=== PATIENT | male | born 1930 | race Caucasian/White ===

== ENCOUNTER 2019-01-06 11:51 | Observation (INO) | payer MEDICARE, OTHER ==
[~2019-01-06] VITALS: Ht 180.3 cm; Wt 96.1 kg
--- NOTE | 2019-01-06 12:09 | ERD ---
ER Documentation Chief Complaint Chief Complaint SENT BY MARGUERITE GREEN C/O RT SHOULDER PAIN. HPI The patient is a 88-year-old male, presenting to the ER because he had a mechanical fall this morning and complained of left shoulder pain. He denies headache, syncope, near syncope, neck pain, chest pain, dyspnea, abdominal pain, vomiting, dysuria, diarrhea. He does not smoke nor drink Past medical history: CAD, atrial fibrillation, hypertension, BPH, dyslipidemia Past surgical history: Pacemaker ROS All systems reviewed and are negative except as per history of present illness. Medications Home Meds Reported Medications Warfarin Sodium* (Coumadin*) 2.5 Mg Tablet, 2.5 MG PO DAILY, TAB START 12/24/18 01/06/19 Acetaminophen* (Acetaminophen*) 325 Mg Tablet, 650 MG PO Q6H PRN for MILD PAIN LEVEL 1-3, #30 TAB 01/06/19 Metolazone* (Metolazone*) 5 Mg Tablet, 5 MG PO DAILY, TAB 01/06/19 Calcium Carbonate/Vitamin D3 (OYSTERCAL-D 500 MG-400 UNIT TB) 1 Each Tablet, 1 EACH PO BID, TAB 01/06/19 Ascorbic Acid (Vitamin C) 500 Mg Tab, 500 MG PO DAILY, TAB 01/06/19 Simvastatin* (Zocor*) 10 Mg Tablet, 10 MG PO QHS, #30 TAB 01/06/19 Potassium Chloride* (Potassium Chloride*) 20 Meq Tablet.er, 20 MEQ PO DAILY, TAB.SA 01/06/19 Pantoprazole* (Pantoprazole*) 40 Mg Tablet.dr, 40 MG PO AC BREAKFAST, TAB 01/06/19 Vit A,C & E/Lutein/Minerals (Ocuvite) 1 Each Tablet, 1 TAB PO DAILY, TAB 01/06/19 Multivitamins* (Theragran*) 1 Tab Tab, 1 TAB PO DAILY, TAB 01/06/19 Mirtazapine* (Mirtazapine*) 15 Mg Tablet, 15 MG PO HS, TAB 01/06/19 Furosemide* (Furosemide*) 40 Mg Tablet, 40 MG PO DAILY, TAB 01/06/19 Finasteride* (Finasteride*) 5 Mg Tablet, 5 MG PO DAILY, TAB 01/06/19 Benazepril Hcl* (Benazepril Hcl*) 10 Mg Tablet, 10 MG PO DAILY, #30 TAB 01/06/19 Aspirin* (Aspirin* EC) 81 Mg Tablet.dr, 81 MG PO DAILY, TAB 01/06/19 Allergies Allergies: Coded Allergies: codeine (Unverified Allergy, Unknown, 01/06/19) Physical Exam Vitals Vital Signs Date Temp Pulse Resp B/P (MAP) Pulse Ox O2 O2 Flow FiO2 Time Delivery Rate 01/06/19 98.8 69 18 115/61 96 12:05 (79) Physical Exam Const: No acute distress. Head: Atraumatic. Eyes: Normal Conjunctiva. ENT: Normal External Ears, Nose and Mouth. Neck: Full range of motion. No meningismus. Resp: Clear to auscultation bilaterally. Cardio: Regular rate and rhythm. Abd: Soft, non distended, normal bowel sounds, non tender. Skin: No petechiae or rashes. Back: No midline or flank tenderness. Ext: Left shoulder with moderate tender with limited range of motion, no skin violation, palpable distal pulses Neur: Awake and alert. No focal deficit Psych: Normal Mood and Affect. Result Diagram: 01/06/19 1314 01/06/19 1314 Results 24 hrs Laboratory Tests Test 01/06/19 13:14 White Blood Count 8.8 10^3/ul Red Blood Count 4.58 10^6/ul Hemoglobin 14.1 g/dl Hematocrit 41.4 % Mean Corpuscular Volume 90.4 fl Mean Corpuscular Hemoglobin 30.8 pg Mean Corpuscular Hemoglobin Concent 34.1 g/dl Red Cell Distribution Width 13.1 % Platelet Count 198 10^3/UL Mean Platelet Volume 9.7 fl Immature Granulocytes % 0.500 % Neutrophils % 58.2 % Lymphocytes % 26.7 % Monocytes % 11.1 % Eosinophils % 3.3 % Basophils % 0.2 % Nucleated Red Blood Cells % 0.0 /100WBC Immature Granulocytes # 0.040 10^3/ul Neutrophils # 5.1 10^3/ul Lymphocytes # 2.4 10^3/ul Monocytes # 1.0 10^3/ul Eosinophils # 0.3 10^3/ul Basophils # 0.0 10^3/ul Nucleated Red Blood Cells # 0.0 10^3/ul Prothrombin Time 26.4 Sec Prothrombin Time Ratio 2.1 INR International Normalized Ratio 2.42 Activated Partial Thromboplast Time 32.0 Sec Sodium Level 133 mmol/L Potassium Level 4.0 mmol/L Chloride Level 92 mmol/L Carbon Dioxide Level 32 mmol/L Anion Gap 9 Blood Urea Nitrogen 19 mg/dl Creatinine 0.88 mg/dl Est Glomerular Filtrat Rate mL/min mL/min Glucose Level 93 mg/dl Calcium Level 9.5 mg/dl Magnesium Level 1.8 mg/dl Troponin I 0.025 ng/ml Current Medications Medications Dose Sig/Yan Start Time Status Last (Trade) Ordered Route PRN Stop Time Admin Dose Reason Admin Ondansetron 4 mg ONCE STAT 01/06/19 DC 01/06/19 HCl (Zofran ODT 14:32 01/06/19 14:58 Odt) 14:35 Procedures/[place] [id number] Radiology Main Line: [phone] DIAGNOSTIC IMAGING REPORT Patient: GISSELLE WINKLER : 1930 Age: 88 Sex: M MR #: [id number] DOS: 01/06/19 1247 Ordering MD: JUAN C AYALA MD Location: E/R Room/Bed: PROCEDURE: XR Chest. CLINICAL INDICATION: Chest pain TECHNIQUE: Single frontal view of the chest was obtained COMPARISON: None FINDINGS: The heart is enlarged. The thoracic aorta is calcified. There is a left-sided pacemaker in place. The patient is status post sternotomy. There is a left atrial appendage exclusion device in place. There is mild elevation of the right diaphragm. There are mild bibasilar atelectatic changes. There is no pleural effusion or pneumothorax. RPTAT: AA IMPRESSION: Mild cardiomegaly. Calcified aorta consistent with atherosclerotic disease. Mild bibasilar atelectatic changes, left greater than right. .Shivam Mcgill MD, MD Date Time Electronically viewed and signed by .Shivam Mcgill MD, MD on 01/06/2019 13:18 .S/ CC: JUAN C AYALA MD [id number] [facility] [id number] [place] [address] Radiology Main Line: [phone] DIAGNOSTIC IMAGING REPORT Patient: GISSELLE WINKLER : 1930 Age: 88 Sex: M MR #: [id number] DOS: 01/06/19 1226 Ordering MD: JUAN C AYALA MD Location: E/R Room/Bed: PROCEDURE: XR left shoulder. CLINICAL INDICATION: Pain TECHNIQUE: AP, Internal and external rotation views of the left shoulder were performed. COMPARISON: None. FINDINGS: There are moderate degenerative changes involving the acromioclavicular joint with mild joint space narrowing. There is normal osseous mineralization and alignment. No fracture or osseous lesion is identified. The soft tissues are unremarkable. There is calcification in the subdeltoid bursa. RPTAT: AA IMPRESSION: Moderate degenerative changes of the acromioclavicular joint. Mild calcific tendonitis. .Shivam Mcgill MD, MD Date Time Electronically viewed and signed by .Shivam Mcgill MD, MD on 01/06/2019 13:16 .S/ CC: JUAN C AYALA MD [id number] EKG: Read by emergency physician Rate/Rhythm: wide qrs rhythm at 71 beats/min QRS, ST, T-waves: No ST elevation, no T inversion, pvc, lad, lvh Impression: abnormal EKG MEDICAL MAKING DECISION: The patient is a 88-year-old male, presenting with acute left shoulder pain, abnormal EKG. treated with Portal 5 mg p.o. for pain and zofran odt for nausea with good response. The differential diagnoses considered include but are not limited to fracture, contusion, sprain, internal derangement, arrhythmia, syncope Departure Diagnosis: Primary Impression: Fall with no significant injury Additional Impression: Abnormal ECG Condition: Stable Comments I discussed the findings with the patient. I discussed the patient with Dr Marlow at 2:30p. who was made aware of the lab, the treatment, the patient condition. The patient is admitted to [facility] Disclaimer: Inadvertent spelling and grammatical errors are likely due to EHR/dictation software use and do not reflect on the overall quality of patient care. Also, please note that the electronic time recorded on this note does not necessarily reflect the actual time of the patient encounter. JUAN C AYALA MD Jan 06, 2019 12:09
[2019-01-06] MEDS ORDERED: ASPI-817 PO (14:24)
[2019-01-06] MEDS ORDERED: FURO40TA4 PO (14:25)
[2019-01-06] MEDS ORDERED: BENA10TA4 PO (14:25)
[2019-01-06] MEDS ORDERED: FINA5TAB4 PO (14:25)
[2019-01-06] MEDS ORDERED: MIRT15TA5 PO (14:26)
[2019-01-06] MEDS ORDERED: MULTI PO (14:26)
[2019-01-06] MEDS ORDERED: VIT1TABL32 PO (14:27)
[2019-01-06] MEDS ORDERED: POTA20TA96 PO (14:27)
[2019-01-06] MEDS ORDERED: PANT40TA4 PO (14:27)
[2019-01-06] MEDS ORDERED: SIMV10TA PO (14:28)
[2019-01-06] MEDS ORDERED: ASC500 PO (14:28)
[2019-01-06] MEDS ORDERED: CALC-634 PO (14:29)
[2019-01-06] MEDS ORDERED: ONDANSETRON (ODT) 4 MG TAB ODT STA (14:32)
[2019-01-06] MEDS ORDERED: METO5TAB65 PO (14:32)
[2019-01-06] MEDS ORDERED: ACET325T45 PO (14:33)
[2019-01-06] MEDS ORDERED: WARF2.5T PO (14:34)
[2019-01-06] MEDS ORDERED: HYDROCODONE/APAP (5/325) TAB PO ONE (15:00)
[2019-01-06 17:16] VITALS: Ht 180.3 cm; Wt 96.1 kg
[2019-01-06] MEDS ORDERED: DOCUSATE SODIUM 100 MG CAP PO PRN (18:30)
[2019-01-06] MEDS ORDERED: ACETAMINOPHEN 325 MG TAB PO PRN (18:30)
[2019-01-06] MEDS ORDERED: NACL 0.9% 3 ML SYG IV SCH (18:30)
[2019-01-06] MEDS ORDERED: ONDANSETRON 4 MG INJ IV PRN (18:30)
--- NOTE | 2019-01-06 19:13 | HP ---
DATE OF ADMISSION: 01/06/2019 REASON FOR ADMISSION: Status post fall with left shoulder pain, abnormal EKG. HISTORY OF PRESENT ILLNESS: The patient is an 88-year-old male with extensive cardiac hist ory including congestive heart failure, hypertension, atrial fibrillation on Coumadin, valve surgery, CABG, 2-vessel disease, abdominal aortic aneurysm repair, who resides at the [facility]. Unfortunately, the patient had an episode of fall and he fell on the left shou lder. He denies any head trauma. He was sent to the ER and chest x-ray was done which shows mild ca rdiomegaly, calcified aorta consistent with atherosclerotic disease, mild ____ atelectatic changes, l eft greater than right. Shoulder x-ray showed moderate degenerative change of the acromioclavicular joint, mild calcific tendinitis. The patient was admitted as his EKG showed widening QRS. The patie nt otherwise denies any chest pain or shortness of breath. Denies any syncopal episode. Denies any head trauma or loss of consciousness. The patient overall has no specific complaints besides left sh oulder pain with decreased range of motion of the arm. The patient needs further care. PAST MEDICAL HISTORY: Includes CHF, hypertension, atrial fibrillation, pacemaker placement, BPH, his tory of abdominal aortic aneurysm status post stenting, coronary artery disease, history of carotid s tenosis status post carotid endarterectomy. ALLERGIES: CODEINE. PAST SURGICAL HISTORY: Includes pacemaker placement, CABG, 2-vessel disease, valvular heart surgery, abdominal aortic aneurysm, carotid endarterectomy. SOCIAL HISTORY: Socially uses tobacco, IV drug abuse. Denies alcohol. Used to drink briefly for 5 years, more than social. The patient is . He has 1 child. MEDICATIONS AT HOME: Include the followin. Aspirin 81 mg daily. 2. Benazepril 10 mg daily. 3. Finasteride 5 mg daily. 4. Lasix 40 mg daily. 5. Mirtazapine 15 mg at bedtime. 6. Multivitamin 1 tablet daily. 7. Ocuvite Lutein 1 tablet daily. 8. Protonix 40 mg daily. 9. ____ daily. 10. Simvastatin 10 mg at bedtime. 11. Vitamin C 500 mg daily. 12. ____ 5 mg b.i.d. 13. Metolazone 5 mg Zaroxolyn 1 tab daily. 14. Potassium chloride 8 mEq 3 times a day. 15. Warfarin 2 mg daily. 16. Tylenol p.r.n. The patient is ambulatory. The patient may have also very mild vascular dementia. FAMILY HISTORY: Noncontributory. PHYSICAL EXAMINATION: VITAL SIGNS: Temperature 98.8, pulse 76, respiration 19, blood pressure 109/65, saturation 95% on ro om air. GENERAL: No acute distress. HEENT: Normocephalic, atraumatic, slightly pale. CARDIOVASCULAR: S1 and S2. Pacemaker is in place. Mid chest scar. LUNGS: Clear. ABDOMEN: Soft, nontender. EXTREMITIES: No clubbing, cyanosis or edema. The patient is with decreased range of motion of the l eft shoulder due to pain. LABORATORY DATA: White count is 8.8, hemoglobin 14.1, hematocrit 41, platelet count is 198, neutroph ils 58%, lymphs 27%. Chemistry: Sodium 133, potassium 4.0, chloride 92, bicarbonate 32, BUN is 19, creatinine 0.88, glucose of 93. Troponin negative at 0.025. Magnesium is 1.8. INR is 2.42 which is therapeutic. DIAGNOSTIC DATA: X-rays: As above. EKG shows left axis deviation, left ventricular hypertrophy wit h QRS widening and repolarization abnormality, possible lateral infarct, age undetermined, 71 beats p er minute. ASSESSMENT AND PLAN: This is an 88-year-old male with history of extensive cardiac history , mild vascular dementia, history of atrial fibrillation, anticoagulated, benign prostatic hypertroph y, osteoarthritis, who presented with unfortunate fall complaining of left shoulder pain. 1. Left shoulder pain. Conservative management for now. Continue physical therapy, pain control. Avoid NSAID in the setting of blood thinners. 2. Arrhythmia. Consult cardiology to possibly interrogate the pacemaker. Cardiology will be consul nela. Serial troponins will be obtained. Monitor patient on telemetry unit for any arrhythmias or an y abnormalities. 3. Benign prostatic hypertrophy. Continue medications. 4. The patient will be placed on Protonix for gastrointestinal prophylaxis. 5. Disposition soon back to facility. 6. History of congestive heart failure. Clinically, no evidence of congestive heart failure exacerb ation. Monitor electrolytes. We will follow closely. May consider discontinuing Coumadin in settin g of fall and just keep him on aspirin. We will follow. Case was discussed with daughter over the phone in detail regarding plan of care. H er name is Daphney, phone number [phone]. Dictated By: RICHARDSON FATIMA/DEVEN Conf#: [id number] DID#: [id number] CC: SIMEON RICO MD;*EndCC*
[2019-01-06 20:00] VITALS: BP 150/80; PULSE 72; RESP 19
[2019-01-06] MEDS ORDERED: MIRTAZAPINE 15 MG TAB PO SCH (21:00)
[2019-01-06 23:52] VITALS: BP 124/59; PULSE 69; RESP 20
[2019-01-07] VITALS: PULSE 70
[2019-01-07 04:00] VITALS: BP 120/80; PULSE 70; PULSE 71; RESP 19
[2019-01-07] MEDS ORDERED: PANTOPRAZOLE (EC) 40 MG TAB PO SCH (06:00)
[2019-01-07 07:10] VITALS: BP 122/66; PULSE 66; RESP 18
[2019-01-07 08:15] VITALS: PULSE 73
--- NOTE | 2019-01-07 08:40 | CONS ---
Assessment/Plan Assessment/Plan Hospital Course (Demo Recall) 1. Abnormal EKG with wide complex rhythm consistent with patient pacemaker 2. Coronary artery disease with history of coronary bypass graft: Currently no angina 3. History of valvular heart disease probably aortic valve replacement 4. History of congestive heart failure: Chronic and stable. Echocardiogram is pending to evaluate for LV function 5. Hypertension under control 6. Peripheral vascular disease status post AAA repair as well as carotid endarterectomy 7. Dyslipidemia 8. afib on coumadin 9/ s/p fall REC CONT WITH coumadin as long as fall precautions is being done. echo is pending. cont MYRTLE-I Will add toprol xl consider stopping asa since pt is on coumadin already resume statin upon discharge. according to daughter, pacemaker was interrogated last week and had normal function and battery thank you Consultation Date/Type/Reason Admit Date/Time Jan 06, 2019 at 14:32 Date of Consultation: Jan 07, 2019 Type of Consult Cardiology Reason for Consultation abnormal ECG Date/Time of Note DATE: 01/07/19 TIME: 08:30 Hx of Present Illness Interventional cardiology consultation note Chief complaint: S/P FALL with shoulder pain Reason for consult: Abnormal EKG, History of present illness: Thank you for this referral. History was obtained from the patient with most from discussion with his daughter and extensive review of the old chart. This is a very pleasant 88-year-old male with extensive cardiac history including congestive heart failure, hypertension, atrial fibrillation on Coumadin, valve surgery, CABG, 2-vessel disease, abdominal aortic aneurysm repai r, who resides at the assisted living facility at [facility]. Unfortunately, the patient had an episode of fall and he fell on the left shoulder yesterday. Patient states that he slipped and he fell he did not pass out.. He denies any head trauma. He was sent to the ER a The patient was adm itted as his EKG showed widening QRS. EKG was personally reviewed which showed patient is being paced in fact. PAST MEDICAL HISTORY: Includes CHF, hypertension, atrial fibrillation, pacemaker placement, BPH, history of abdominal aortic aneurysm status post stenting, coronary artery disease, history of carotid stenosis status post carotid endarterectomy. ALLERGIES: CODEINE. PAST SURGICAL HISTORY: Includes pacemaker placement about 4 years ago using a [employer] device, CABG, 2-vessel disease, valvular heart surgery probably aortic valve replacement using a bioprosthetic valve more than 10 years ago , abdominal aortic aneurysm, carotid endarterectomy. SOCIAL HISTORY: Socially uses tobacco, IV drug abuse. Denies alcohol. Used to drink briefly for 5 years, more than social. The patient is . He has 1 child. MEDICATIONS AT HOME: Include the followin. Aspirin 81 mg daily. 2. Benazepril 10 mg daily. 3. Finasteride 5 mg daily. 4. Lasix 40 mg daily. 5. Mirtazapine 15 mg at bedtime. 6. Multivitamin 1 tablet daily. 7. Ocuvite Lutein 1 tablet daily. 8. Protonix 40 mg daily.. 10. Simvastatin 10 mg at bedtime. 11. Vitamin C 500 mg daily. 12. ____ 5 mg b.i.d. 13. Metolazone 5 mg Zaroxolyn 1 tab daily. 14. Potassium chloride 8 mEq 3 times a day. 15. Warfarin 2 mg daily. 16. Tylenol p.r.n. Allergies: Codeine Family history: Patient father at a young age of myocardial infarction Review of system: Patient denies all others except for above-mentioned Past Medical History Home Meds Reported Medications Warfarin Sodium* (Coumadin*) 2.5 Mg Tablet, 2.5 MG PO DAILY, TAB START 12/24/18 01/06/19 Acetaminophen* (Acetaminophen*) 325 Mg Tablet, 650 MG PO Q6H PRN for MILD PAIN LEVEL 1-3, #30 TAB 01/06/19 Metolazone* (Metolazone*) 5 Mg Tablet, 5 MG PO DAILY, TAB 01/06/19 Calcium Carbonate/Vitamin D3 (OYSTERCAL-D 500 MG-400 UNIT TB) 1 Each Tablet, 1 EACH PO BID, TAB 01/06/19 Ascorbic Acid (Vitamin C) 500 Mg Tab, 500 MG PO DAILY, TAB 01/06/19 Simvastatin* (Zocor*) 10 Mg Tablet, 10 MG PO QHS, #30 TAB 01/06/19 Potassium Chloride* (Potassium Chloride*) 20 Meq Tablet.er, 20 MEQ PO DAILY, TAB.SA 01/06/19 Pantoprazole* (Pantoprazole*) 40 Mg Tablet.dr, 40 MG PO AC BREAKFAST, TAB 01/06/19 Vit A,C & E/Lutein/Minerals (Ocuvite) 1 Each Tablet, 1 TAB PO DAILY, TAB 01/06/19 Multivitamins* (Theragran*) 1 Tab Tab, 1 TAB PO DAILY, TAB 01/06/19 Mirtazapine* (Mirtazapine*) 15 Mg Tablet, 15 MG PO HS, TAB 01/06/19 Furosemide* (Furosemide*) 40 Mg Tablet, 40 MG PO DAILY, TAB 01/06/19 Finasteride* (Finasteride*) 5 Mg Tablet, 5 MG PO DAILY, TAB 01/06/19 Benazepril Hcl* (Benazepril Hcl*) 10 Mg Tablet, 10 MG PO DAILY, #30 TAB 01/06/19 Aspirin* (Aspirin* EC) 81 Mg Tablet.dr, 81 MG PO DAILY, TAB 01/06/19 Medications Current Medications IV Flush (NS 3 ml) 3 ml PER PROTOCOL IV ; Start 01/06/19 at 18:30 Ondansetron HCl (Zofran Inj) 4 mg Q6H PRN IV NAUSEA/VOMITING; Start 01/06/19 at 18:30 Acetaminophen (Tylenol Tab) 650 mg Q6H PRN PO .PAIN 1-3 OR TEMP Last administered on 01/06/19at 22:29; Admin Dose 650 MG; Start 01/06/19 at 18:30 Docusate Sodium (Colace) 100 mg Q12H PRN PO .CONSTIPATION; Start 01/06/19 at 18:30 Pantoprazole (Protonix Tab) 40 mg DAILY@06 PO Last administered on 01/07/19at 05 :04; Admin Dose 40 MG; Start 01/07/19 at 06:00 Ascorbic Acid (Vitamin C) 500 mg DAILY PO ; Start 01/07/19 at 09:00 Aspirin (Halfprin) 81 mg DAILY PO ; Start 01/07/19 at 09:00 Benazepril HCl (Lotensin) 10 mg DAILY PO ; Start 01/07/19 at 09:00 Finasteride (Proscar) 5 mg DAILY PO ; Start 01/07/19 at 09:00 Furosemide (Lasix) 40 mg DAILY PO ; Start 01/07/19 at 09:00 Metolazone (Zaroxolyn) 5 mg DAILY PO ; Start 01/07/19 at 09:00 Mirtazapine (Remeron) 15 mg HS PO Last administered on 01/06/19at 20:15; Admin Dose 15 MG; Start 01/06/19 at 21:00 Multivitamins Therapeutic (Theragran) 1 tab DAILY PO ; Start 01/07/19 at 09:00 Potassium Chloride (Klor-Con 20) 20 meq DAILY PO ; Start 01/07/19 at 09:00 Beta Carotene (Ocuvite) 1 tab DAILY PO ; Start 01/07/19 at 09:00 Warfarin Sodium (Coumadin) 2.5 mg DAILY@1700 PO ; Start 01/07/19 at 17:00 Allergies: Coded Allergies: codeine (Unverified Allergy, Unknown, 01/06/19) Social History Smoking Status: Never smoker Exam/Review of Systems Vital Signs Vitals Vital Signs Date Temp Pulse Resp B/P (MAP) Pulse Ox O2 O2 Flow FiO2 Time Delivery Rate 01/07/19 73 08:15 01/07/19 97.5 18 122/66 97 07:10 (84) 01/07/19 2.0 05:37 01/07/19 Room Air 04:00 Intake and Output 01/06/19 01/06/19 01/07/19 1414:59 22:59 06:59 IntakeIntake Total 120 ml OutputOutput Total 450 ml BalanceBalance -330 ml Exam Exam General: no acute distress HEENT: NC/AT. pupils are equal. round. NECK: NO JVD. no stridor. Chest: Status post sternotomy status post pacemaker on the left side CV: RRR. systolic murmur; no gallop or rubs. PULM: no wheezing or rhonchi. GI: SOFT, NT, ND, no rebound or guarding Extremity: trace B/L LE edema. no clubbing. neuro: awake and alert, OX2. Psych: calm and pleasant rectal: deferred : normal EKG was personally reviewed shows ventricular paced rhythm with occasional PVC . Chest x-ray was personally reviewed which shows: Mild cardiomegaly. Calcified aorta consistent with atherosclerotic disease. Mild bibasilar atelectatic changes, left greater than right. Labs Result Diagram: 01/07/19 0611 01/07/19 0611 Results 24hrs Laboratory Tests Test 01/06/19 13:14 01/07/19 06:11 White Blood Count 8.8 8.8 Red Blood Count 4.58 L 4.49 L Hemoglobin 14.1 13.8 L Hematocrit 41.4 L 40.6 L Mean Corpuscular Volume 90.4 90.4 Mean Corpuscular Hemoglobin 30.8 30.7 Mean Corpuscular Hemoglobin Concent 34.1 34.0 Red Cell Distribution Width 13.1 13.0 Platelet Count 198 193 Mean Platelet Volume 9.7 10.0 Immature Granulocytes % 0.500 H 0.300 Neutrophils % 58.2 51.5 Lymphocytes % 26.7 34.5 Monocytes % 11.1 H 10.0 Eosinophils % 3.3 3.4 Basophils % 0.2 0.3 Nucleated Red Blood Cells % 0.0 0.0 Immature Granulocytes # 0.040 H 0.030 Neutrophils # 5.1 4.5 Lymphocytes # 2.4 3.0 H Monocytes # 1.0 H 0.9 Eosinophils # 0.3 0.3 Basophils # 0.0 0.0 Nucleated Red Blood Cells # 0.0 0.0 Prothrombin Time 26.4 H Prothrombin Time Ratio 2.1 INR International Normalized Ratio 2.42 Activated Partial Thromboplast Time 32.0 Sodium Level 133 L 133 L Potassium Level 4.0 3.7 Chloride Level 92 L 93 L Carbon Dioxide Level 32 H 33 H Anion Gap 9 7 Blood Urea Nitrogen 19 18 Creatinine 0.88 0.87 Est Glomerular Filtrat Rate mL/min Glucose Level 93 85 Calcium Level 9.5 9.2 Magnesium Level 1.8 Troponin I 0.025 0.031 Hemoglobin A1c 5.6 Total Bilirubin 1.2 Direct Bilirubin 0.00 Indirect Bilirubin 1.2 H Aspartate Amino Transf (AST/SGOT) 19 Alanine Aminotransferase (ALT/SGPT) 17 Alkaline Phosphatase 45 B-Type Natriuretic Peptide 890 H Total Protein 6.3 Albumin 3.8 Globulin 2.50 Albumin/Globulin Ratio 1.52 Triglycerides Level 78 Cholesterol Level 139 LDL Cholesterol, Calculated 72 HDL Cholesterol 51 Cholesterol/HDL Ratio 2.7 Thyroid Stimulating Hormone (TSH) Pending Medications Medications Current Medications IV Flush (NS 3 ml) 3 ml PER PROTOCOL IV ; Start 01/06/19 at 18:30 Ondansetron HCl (Zofran Inj) 4 mg Q6H PRN IV NAUSEA/VOMITING; Start 01/06/19 at 18:30 Acetaminophen (Tylenol Tab) 650 mg Q6H PRN PO .PAIN 1-3 OR TEMP Last administered on 01/06/19at 22:29; Admin Dose 650 MG; Start 01/06/19 at 18:30 Docusate Sodium (Colace) 100 mg Q12H PRN PO .CONSTIPATION; Start 01/06/19 at 18:30 Pantoprazole (Protonix Tab) 40 mg DAILY@06 PO Last administered on 01/07/19at 05:04; Admin Dose 40 MG; Start 01/07/19 at 06:00 Ascorbic Acid (Vitamin C) 500 mg DAILY PO ; Start 01/07/19 at 09:00 Aspirin (Halfprin) 81 mg DAILY PO ; Start 01/07/19 at 09:00 Benazepril HCl (Lotensin) 10 mg DAILY PO ; Start 01/07/19 at 09:00 Finasteride (Proscar) 5 mg DAILY PO ; Start 01/07/19 at 09:00 Furosemide (Lasix) 40 mg DAILY PO ; Start 01/07/19 at 09:00 Metolazone (Zaroxolyn) 5 mg DAILY PO ; Start 01/07/19 at 09:00 Mirtazapine (Remeron) 15 mg HS PO Last administered on 01/06/19at 20:15; Admin Dose 15 MG; Start 01/06/19 at 21:00 Multivitamins Therapeutic (Theragran) 1 tab DAILY PO ; Start 01/07/19 at 09:00 Potassium Chloride (Klor-Con 20) 20 meq DAILY PO ; Start 01/07/19 at 09:00 Beta Carotene (Ocuvite) 1 tab DAILY PO ; Start 01/07/19 at 09:00 Warfarin Sodium (Coumadin) 2.5 mg DAILY@1700 PO ; Start 01/07/19 at 17:00 SIMEON RICO MD Jan 07, 2019 08:40
[2019-01-07] MEDS ORDERED: ASCORBIC ACID 500 MG TAB PO SCH (09:00)
[2019-01-07] MEDS ORDERED: ASPIRIN (EC) 81 MG TAB PO SCH (09:00)
[2019-01-07] MEDS ORDERED: BETA CAROTENE/VIT C/E/MIN TAB PO SCH (09:00)
[2019-01-07] MEDS ORDERED: FINASTERIDE 5 MG TAB PO SCH (09:00)
[2019-01-07] MEDS ORDERED: METOLAZONE 5 MG TAB PO SCH (09:00)
[2019-01-07] MEDS ORDERED: POTASSIUM CHLORIDE (SR) 20 MEQ TAB PO SCH (09:00)
[2019-01-07] MEDS ORDERED: BENAZEPRIL 10 MG TAB PO SCH (09:00)
[2019-01-07] MEDS ORDERED: FUROSEMIDE 40 MG TAB PO SCH (09:00)
[2019-01-07] MEDS ORDERED: MULTIVITAMINS THERAPEUTIC TAB PO SCH (09:00)
--- NOTE | 2019-01-07 10:40 | RADRPT ---
Echocardiogram Report Patient Name: GISSELLE WINKLERPatient ID: [id number] : 1930 (88y 5m)Study Date: 01/07/2019 8:33:36 AM Gender: MAccession #: [id number] Tech: Albert Gardner [facility] Location: [address] Ref.Physician: RICHARDSON PETERSON Height(Cm): BSA: Weight(Kg): Quality: AdequateAccount #: Procedures: Echocardiographic Report: Transthoracic echocardiogram with complete 2D, M-Mode, and doppler examination. Indications: Congestive Heart Failure. Measurements: 2D/M Mode Doppler Measurement Value Normal Range Measurement Value Normal Range LVIDd 2D 2.1 [ 4.2 - 5.8 ] cm ELY Vmax 1.0 [ 2.0 - 4.0 ] cm2 LVIDs 2D 2.7 [ 2.5 - 4.0 ] cm ELY VTI 1.2 [ 2.0 - 4.0 ] cm2 IVSd 2D 2.1 [ 0.6 - 1.0 ] cm AV Mean Patrick 1.6 [ 70.0 - 90.0 ] cm/sec IVS/LVPW 2D 1.3 ratio AV Mean PG 12.0 [ 2.0 - 4.0 ] mmHg AoR Diam 2D 3.3 [ 2.6 - 3.4 ] cm AV Peak Patrick 2.5 [ 100.0 - 170.0 ] cm/sec LA/Ao 2D 2 ratio AV Peak PG 25.0 [ 2.0 - 9.0 ] mmHg EF 2D 66.4 [ 52.0 - 72.0 ] percent AV VTI 49.7 cm LA Dimen 2D 5.4 [ 3.0 - 4.0 ] cm LVOT Mean Patrick 0.5 [ 60.0 - 80.0 ] cm/sec LVOT Diam 2.1 [ 2.3 - 2.9 ] cm LVOT Mean PG 1.0 [ 1.0 - 3.0 ] mmHg LVOT Area 3.5 cm2 LVOT Peak Patrick 0.7 [ 70.0 - 110.0 ] cm/sec LVOT Peak PG 2.0 [ 2.0 - 6.0 ] mmHg LVOT VTI 17.1 [ 20.0 - 30.0 ] cm MV E Peak Patrick 1.1 [ 60.0 - 130.0 ] cm/sec MV Decel Time 194 [ 104 - 258 ] msec Lat E` Patrick 0.0 [ 10.0 - 15.0 ] cm/sec TR Peak Patrick 2.7 [ 100.0 - 280.0 ] cm/sec TR Peak PG 29.0 mmHg RVSP 39.0 [ 10.0 - 36.0 ] mmHg Findings: Left Ventricle: Normal left ventricular systolic function. Normal left ventricular cavity size. Severe asymmetric septal hypertrophy. Paradoxical septal motion consistent with RV pacemaker. Ejection fraction is visually estimated at 50 %. Tissue Doppler/Mitral Doppler indices are consistent with impaired relaxation (Stage I diastolic dysfunction). Right Ventricle: Normal right ventricular systolic function. Mild enlargement of right ventricle. Pacemaker right heart. Left Atrium: There is severe enlargement of left atrium. Right Atrium: There is mild enlargement of right atrium. Mitral Valve: Mild mitral leaflet calcification. Mild mitral annular calcification. Trace mitral regurgitation. Aortic Valve: Aortic Valve Bio Prosthesis. Moderate aortic stenosis. Aortic valve Max velocity 2.48 m/sec. Max PG 25.00 mmHg. Mean PG 12.00 mmHg. Aortic cusps appear moderately calcified. Tricuspid Valve: Normal appearance of the tricuspid valve. Estimated peak PA systolic pressure 39 mmHg. There is mild tricuspid regurgitation. Pericardium: Normal pericardium with no significant pericardial effusion. Aorta: Normal aortic root. IVC: Normal size and normal respiratory collapse consistent with normal right atrial pressure. Conclusions: There is mild enlargement of right atrium. There is severe enlargement of left atrium. Normal left ventricular systolic function. Normal left ventricular cavity size. Severe asymmetric septal hypertrophy. Paradoxical septal motion consistent with RV pacemaker. Ejection fraction is visually estimated at 50 %. Tissue Doppler/Mitral Doppler indices are consistent with impaired relaxation (Stage I diastolic dysfunction). Mild mitral leaflet calcification. Mild mitral annular calcification. Trace mitral regurgitation. Normal appearance of the tricuspid valve. Estimated peak PA systolic pressure 39 mmHg. There is mild tricuspid regurgitation. Aortic Valve Bio Prosthesis. Moderate aortic stenosis. Aortic valve Max velocity 2.48 m/sec. Max PG 25.00 mmHg. Mean PG 12.00 mmHg. Aortic cusps appear moderately calcified. Normal size and normal respiratory collapse consistent with normal right atrial pressure. Electronically Signed By: Sky Parks 2019-01-07 10:39:27 PDT
[2019-01-07 11:23] VITALS: BP 118/59; PULSE 63; RESP 19
[2019-01-07 13:50] VITALS: PULSE 73
--- NOTE | 2019-01-07 14:11 | PDOCDIS ---
Discharge Instructions CONDITION [id number] Patient Condition: [id number] Stable ACTIVITY: [id number] Activity Restrictions: [id number] Slowly Increase Activity FOLLOW UP/APPOINTMENTS Follow-up Plan dc with home health/physical therapy Left shoulder trauma RICHARDSON PETERSON MD Jan 07, 2019 14:11
[2019-01-07] MEDS ORDERED: WARFARIN 2.5 MG TAB PO SCH (17:00)
--- NOTE | 2019-01-07 19:15 | PN ---
DATE: 01/07/2019 REASON FOR ADMISSION: Status post fall, left shoulder pain. HISTORY OF PRESENT ILLNESS: The patient is an 88-year-old male with history of extensive c ardiac history including CHF, hypertension, atrial fibrillation, valve surgery, CABG, 2-vessel diseas e, abdominal aortic aneurysm repair, valve surgery on Coumadin. The patient unfortunately sustained a fall as he tripped. Unfortunately he complained of left shoulder pain and he was transferred to [facility] Emergency Department. Upon presentation, he underwent a shoulder x-ray which showe d moderate degenerative changes of the acromioclavicular joint, mild calcific tendonitis. The patien t's chest x-ray showed mild cardiomegaly, calcified aorta consistent with atherosclerotic disease, mi ld basilar atelectatic changes, left greater than right. The patient was admitted due to a wide comp marcela rhythm. Upon admission, I consulted Dr. Parks, who stated that the rhythm is consistent with th e patient's pacemaker continue with Coumadin, but hold aspirin. The patient can be discharged. Topr ol-XL actually may be added to the medication, but currently actually vitals are stable, temperature 96.6, pulse 73, respiration 19, blood pressure 118/59, saturation 96%. DISCHARGE MEDICATIONS: The patient can be discharged with the following medications: 1. Tylenol p.r.n. 2. Vitamin C 500 mg daily. 3. Benazepril 10 mg daily. 4. Calcium carbonate with D 1 tab b.i.d. 5. Finasteride 5 mg daily. 6. Lasix 40 daily. 7. Metolazone 5 mg daily. 8. Mirtazapine 15 mg at bedtime. 9. Multivitamin 1 tab daily. 10. Protonix 40 mg daily. 11. K-Tab 20 mEq daily. 12. Simvastatin 10 mg at bedtime. 13. Ocuvite daily. 14. Warfarin 2.5 mg daily. I discontinued this patient's aspirin. Echocardiogram revealed the following: EF of 50, stage I diastolic dysfunction, moderate aortic sten osis. DISCHARGE DIAGNOSES: 1. Status post fall with no head trauma. 2. Left shoulder pain. No fractures. 3. History of atrial fibrillation. 4. Pacemaker. 5. Congestive heart failure. 6. Mild vascular dementia. 7. Hypertension. 8. Dyslipidemia. 9. Benign prostatic hypertrophy. I left a message with the daughter today and talked to her yesterday. Her name is Daphney, . The patient is discharged with home health. I explained to the patient that he really needs to avoid falling. If he does, we may have to just put him on aspirin instead of the Coumadin, but overa ll plan of care discussed. Patient to discharge home. Follow up with cardiology. Any change in con dition to call 911 or go to nearest emergency department. Again, patient will see physical therapy. Diet: 2 g sodium. Activity: As tolerated. The patient will be discharged today with transportati on. Dictated By: RICHARDSON FATIMA/DEVEN Conf#: [id number] DID#: [id number]
== END 2019-01-07 17:00 ==
LOC: E/R 11:51 → TEL 14:32
PROVIDERS: ADMIT Internal Medicine; ATTEND Internal Medicine
DX: M25.512 Pain in left shoulder (principal); I49.9 Cardiac arrhythmia, unspecified; N40.0 Benign prostatic hyperplasia without lower urinary tract symptoms; I50.9 Heart failure, unspecified; I48.91 Unspecified atrial fibrillation; I71.4 Abdominal aortic aneurysm, without rupture; Z79.01 Long term (current) use of anticoagulants; Z79.82 Long term (current) use of aspirin; Z95.0 Presence of cardiac pacemaker; Z95.1 Presence of aortocoronary bypass graft; F17.210 Nicotine dependence, cigarettes, uncomplicated; F01.50 Vascular dementia, unspecified severity, without behavioral disturbance, psychotic disturbance, mood disturbance, and anxiety; Z91.81 History of falling
CPT/HCPCS: 36415; 71045; 73030; 80048; 80053; 80061; 83036; 83735; 83880; 84443; 84484; 85025; 85610; 85730; 93005; 93306; 93880; 97162; 99285; G0378

== ENCOUNTER 2019-03-26 13:47 | Inpatient (IN) | payer MEDICARE, OTHER ==
[~2019-03-26] VITALS: Ht 175.3 cm; Wt 101.6 kg
[~2019-03-26 13:47] MED LIST: ACET325T45 PO; ASC500 PO; BENA10TA4 PO; CALC-634 PO; FINA5TAB4 PO; FURO40TA4 PO; METO5TAB65 PO; MIRT15TA5 PO; MULTI PO; PANT40TA4 PO; POTA20TA96 PO; SIMV10TA PO; VIT1TABL32 PO; WARF2.5T PO
[2019-03-26] MEDS ORDERED: NACL 0.9% 3 ML SYG IV SCH (15:00)
[2019-03-26] MEDS ORDERED: ONDANSETRON 4 MG INJ IV PRN ×2 (15:00)
[2019-03-26] MEDS ORDERED: morphine 2 MG INJ IV PRN (15:00)
[2019-03-26] MEDS ORDERED: AZITHROMYCIN 500MG/NS (PMX) 250 ML IVPB SCH (15:00)
[2019-03-26] MEDS ORDERED: VANCOMYCIN IV PER PHARMACY XX SCH (15:00)
[2019-03-26] MEDS ORDERED: VANCOMYCIN 1 GM (PMX) 250 ML IVPB ONE (15:00)
[2019-03-26] MEDS ORDERED: DOCUSATE SODIUM 100 MG CAP PO PRN (15:00)
[2019-03-26] MEDS ORDERED: ACETAMINOPHEN 325 MG TAB PO PRN ×3 (15:00)
[2019-03-26] MEDS ORDERED: MAGNESIUM HYDROXIDE 30ML CUP PO PRN (15:00)
[2019-03-26] MEDS ORDERED: CEFEPIME 1GM/50 ML (PMX) 50 ML IVPB ONE (15:00)
[2019-03-26] MEDS ORDERED: GUAIFENESIN/DM 5ML CUP PO PRN (15:30)
[2019-03-26] MEDS ORDERED: ALBUTEROL/IPRATROPIUM (NEB) 3 ML AMP HHN PRN (15:30)
[2019-03-26] MEDS: FUROSEMIDE 40 MG INJ IV SCH ×2 (15:47→20:32)
[2019-03-26] MEDS: METHYLPREDNISOLONE 40 MG INJ IV SCH ×2 (15:47→20:32)
[2019-03-26] MEDS: ALBUTEROL/IPRATROPIUM (NEB) 3 ML AMP HHN SCH ×2 (15:58→21:08)
--- NOTE | 2019-03-26 16:02 | ERD ---
ER Documentation Chief Complaint Chief Complaint DR MARLOW SENT PT TO BE CHECKED FOR COUGHING UP BLOOD HPI Patient is a 88-year-old male with history of dementia, hypertension, and high cholesterol. He presents for coughing blood. Please note the history and physical exam is limited as the patient has dementia. The patient had a cold on Saturday per the daughter at an assisted living facility. The patient was prescribed antibiotics yesterday by Dr. Marlow. He was prescribed Augmentin. He is on Coumadin. Last night he sounded horrible and today he was worse per the daughter. Temperature was 99.6. The daughter called Dr. Marlow who told her to go to the emergency department. There are streaks of blood in the sputum. Upon review of old medical records the patient one previous visit to the ER on January 06. ROS All systems reviewed and are negative except as per history of present illness. Medications Home Meds Reported Medications Warfarin Sodium* (Coumadin*) 2.5 Mg Tablet, 2.5 MG PO DAILY, TAB START 12/24/18 01/06/19 Acetaminophen* (Acetaminophen*) 325 Mg Tablet, 650 MG PO Q6H PRN for MILD PAIN LEVEL 1-3, #30 TAB 01/06/19 Metolazone* (Metolazone*) 5 Mg Tablet, 5 MG PO DAILY, TAB 01/06/19 Calcium Carbonate/Vitamin D3 (OYSTERCAL-D 500 MG-400 UNIT TB) 1 Each Tablet, 1 EACH PO BID, TAB 01/06/19 Ascorbic Acid (Vitamin C) 500 Mg Tab, 500 MG PO DAILY, TAB 01/06/19 Simvastatin* (Zocor*) 10 Mg Tablet, 10 MG PO QHS, #30 TAB 01/06/19 Potassium Chloride* (Potassium Chloride*) 20 Meq Tablet.er, 20 MEQ PO DAILY, TAB.SA 01/06/19 Pantoprazole* (Pantoprazole*) 40 Mg Tablet.dr, 40 MG PO AC BREAKFAST, TAB 01/06/19 Vit A,C & E/Lutein/Minerals (Ocuvite) 1 Each Tablet, 1 TAB PO DAILY, TAB 01/06/19 Multivitamins* (Theragran*) 1 Tab Tab, 1 TAB PO DAILY, TAB 01/06/19 Mirtazapine* (Mirtazapine*) 15 Mg Tablet, 15 MG PO HS, TAB 01/06/19 Furosemide* (Furosemide*) 40 Mg Tablet, 40 MG PO DAILY, TAB 01/06/19 Finasteride* (Finasteride*) 5 Mg Tablet, 5 MG PO DAILY, TAB 01/06/19 Benazepril Hcl* (Benazepril Hcl*) 10 Mg Tablet, 10 MG PO DAILY, #30 TAB 01/06/19 Allergies Allergies: Coded Allergies: codeine (Unverified Allergy, Unknown, 01/06/19) PMhx/Soc History of Surgery: Yes (Pacemaker ) Anesthesia Reaction: No Hx Neurological Disorder: No Hx Respiratory Disorders: No Hx Cardiac Disorders: Yes (CAD, A fib, pacemaker, dyslipidemia, HTN ) Hx Psychiatric Problems: No Hx Miscellaneous Medical Probl: Yes (pacemaker,a fib,CABG,CHF,HTN) Hx Alcohol Use: No Hx Substance Use: No Hx Tobacco Use: No Smoking Status: Never smoker FmHx Family History: No diabetes Physical Exam Vitals Vital Signs Date Temp Pulse Resp B/P (MAP) Pulse Ox O2 O2 Flow FiO2 Time Delivery Rate 03/26/19 Nasal 2 14:16 Cannula 03/26/19 Nasal 2.0 14:16 Cannula 03/26/19 99.8 70 24 120/59 94 13:49 (79) Physical Exam Const: No acute distress Head: Atraumatic Eyes: Normal Conjunctiva ENT: Normal External Ears, Nose and Mouth. Neck: Full range of motion. No meningismus. Resp: Decreased breath sounds bilaterally Cardio: Regular rate and rhythm, no murmurs Abd: Soft, non tender, non distended. Normal bowel sounds Skin: No petechiae or rashes Back: No midline or flank tenderness Ext: No cyanosis, or edema Neur: Awake and alert Psych: Normal Mood and Affect Result Diagram: 03/26/19 1414 03/26/19 1414 Results 24 hrs Laboratory Tests Test 03/26/19 14:14 03/26/19 14:33 White Blood Count 10.0 10^3/ul Red Blood Count 4.35 10^6/ul Hemoglobin 13.3 g/dl Hematocrit 39.7 % Mean Corpuscular Volume 91.3 fl Mean Corpuscular Hemoglobin 30.6 pg Mean Corpuscular Hemoglobin Concent 33.5 g/dl Red Cell Distribution Width 13.7 % Platelet Count 179 10^3/UL Mean Platelet Volume 9.6 fl Immature Granulocytes % 0.300 % Neutrophils % 59.3 % Lymphocytes % 27.0 % Monocytes % 12.3 % Eosinophils % 0.9 % Basophils % 0.2 % Nucleated Red Blood Cells % 0.0 /100WBC Immature Granulocytes # 0.030 10^3/ul Neutrophils # 5.9 10^3/ul Lymphocytes # 2.7 10^3/ul Monocytes # 1.2 10^3/ul Eosinophils # 0.1 10^3/ul Basophils # 0.0 10^3/ul Nucleated Red Blood Cells # 0.0 10^3/ul Prothrombin Time 15.0 Sec Prothrombin Time Ratio 1.2 INR International Normalized Ratio 1.17 Activated Partial Thromboplast Time 27.4 Sec Sodium Level 133 mmol/L Potassium Level 3.9 mmol/L Chloride Level 93 mmol/L Carbon Dioxide Level 31 mmol/L Anion Gap 9 Blood Urea Nitrogen 23 mg/dl Creatinine 0.89 mg/dl Est Glomerular Filtrat Rate mL/min mL/min Glucose Level 99 mg/dl Calcium Level 9.2 mg/dl Troponin I 0.047 ng/ml POC Venous Lactate 1.2 mmol/L Current Medications Medications Dose Sig/Yan Start Time Status Last (Trade) Ordered Route PRN Stop Time Admin Dose Reason Admin Vancomycin 250 ml @ ONCE ONCE 03/26/19 03/26/19 HCl 125 mls/hr IVPB 15:00 15:46 03/26/19 16:59 Cefepime HCl 50 ml @ ONCE ONCE 03/26/19 DC 03/26/19 100 mls/hr IVPB 15:00 14:46 03/26/19 15:29 Ondansetron 4 mg BRIDGE ORDER 03/26/19 HCl (Zofran PRN IV 15:00 Inj) NAUSEA/VOMITI 03/27/19 14:59 NG 650 mg ER BRIDGE 03/26/19 Acetaminophen PRN PO 15:00 (Tylenol .MILD PAIN 03/27/19 14:59 Tab) 1-3 OR TEMP IV Flush 3 ml PER 03/26/19 (NS 3 ml) PROTOCOL IV 15:00 Ondansetron 4 mg Q6H PRN 03/26/19 HCl (Zofran IV 15:00 Inj) NAUSEA/VOMITI NG Furosemide 20 mg Q12 IV 03/26/19 03/26/19 (Lasix) 15:00 15:47 650 mg Q6H PRN 03/26/19 Acetaminophen PO .PAIN 1-3 15:00 (Tylenol OR TEMP Tab) Morphine 2 mg Q4H PRN 03/26/19 Sulfate IV .PAIN 15:00 (morphine) 7-10 Docusate 100 mg Q12H PRN 03/26/19 Sodium PO 15:00 (Colace) .CONSTIPATION Magnesium 30 ml DAILY PRN 03/26/19 Hydroxide PO 15:00 (Milk Of Mag) .CONSTIPATION 40 mg DAILY@06 03/27/19 Pantoprazole PO 06:00 (Protonix Tab) 650 mg Q6H PRN 03/26/19 DC Acetaminophen PO MILD PAIN 15:00 (Tylenol LEVEL 1-3 03/26/19 15:01 Tab) Ascorbic 500 mg DAILY PO 03/27/19 Acid 09:00 (Vitamin C) Benazepril 10 mg DAILY PO 03/27/19 HCl 09:00 (Lotensin) Finasteride 5 mg DAILY PO 03/27/19 (Proscar) 09:00 Mirtazapine 15 mg HS PO 03/26/19 (Remeron) 21:00 1 tab DAILY PO 03/27/19 UNV Multivitamins 09:00 Therapeutic (Theragran) Potassium 20 meq DAILY PO 03/27/19 Chloride 09:00 (Klor-Con 20) Beta 1 tab DAILY PO 03/27/19 UNV Carotene 09:00 (Ocuvite) Cefepime HCl 50 ml @ Q12 IVPB 03/27/19 100 mls/hr 01:00 Vancomycin VANCOMYCIN PER 03/26/19 HCl (Vanco PER PHARMACY PROTOCOL XX 15:00 Iv Per Pharmacy) Albuterol/ 3 ml Q6HWA RESP 03/26/19 03/26/19 Ipratropium THERAPY HHN 20:00 15:58 (Duoneb) Azithromycin 250 ml @ DAILY IVPB 03/26/19 250 mls/hr 15:00 40 mg Q12 IV 03/26/19 03/26/19 Methylprednis 15:00 15:47 olone Sodium Succinate (Solu-Medrol) Heparin 5,000 unit BID SC 03/26/19 Sodium 21:00 (Porcine) (Heparin (5000 Units/1ml)) Warfarin 3 mg DAILY@17 03/26/19 Sodium PO 17:00 (Coumadin) Albuterol/ 3 ml Q2 PRN 03/26/19 Ipratropium HHN 15:30 (Duoneb) shorntess of breath Guaifenesin 600 mg BID PO 03/26/19 UNV (Mucinex) 21:00 5 ml Q4 PRN PO 03/26/19 Guaifenesin/ cough 15:30 Dextromethorp cristhian (Robitussin Dm Liquid Cup) Procedures/MDM Chest X-ray 1V Interpreted by me: Soft Tissue: No acute abnormalities Bones: No acute abnormalities Mediastinum/Cardiac Silhouette/Lungs: Left lower lobe infiltrate Bilateral lower extremity ultrasound negative for DVT per radiology. Patient is a an 88-year-old male who presents with hemoptysis. I believe he has pneumonia which is likely the cause of his hemoptysis. He is on Coumadin but his INR is fairly low. The patient will be admitted to the care of Dr. Marlow to a medical surgical bed. He was given broad-spectrum antibiotics with vancomycin and cefepime. Lactic acid is normal and at this point I doubt sepsis. Bilateral lower extreme the ultrasound is negative and I doubt pulmonary embolism. Departure Diagnosis: Primary Impression: Hemoptysis Additional Impression: Pneumonia Pneumonia type: due to unspecified organism Laterality: left Lung location: lower lobe of lung Qualified Codes: J18.1 - Lobar pneumonia, unspecified organism Condition: YOGESH Guzman MD Mar 26, 2019 16:02
[2019-03-26] MEDS ORDERED: WARFARIN 3 MG TAB PO SCH (17:00)
--- NOTE | 2019-03-26 17:27 | HP ---
DATE OF ADMISSION: 03/26/2019 REASON FOR ADMISSION: Acute bronchitis, peripheral edema, shortness of breath, CHF exacerbation. HISTORY OF PRESENT ILLNESS: The patient is an 88-year-old male with history of extensive c ardiac history including CHF, hypertension, atrial fibrillation on Coumadin, valve surgery, CABG, 2-v essel disease, abdominal aortic aneurysm repair, who currently resides at [facility]. The patient is well known to me from previous hospitalization back in January 17, presented with a fall and left shoulder pain and abnormal EKG. Ultimately, the patient was treat ed conservatively for his shoulder pain and he was seen by the day habilitation specialist, and the patient was discharged in good condition. The patient now in the past few days has been reporting increased cough, chest congestion and lower extremity edema. The patient was started on Augmentin yesterday, but overall symptoms worsen and they decided to bring him to the hospital due to increased cough, blo od-tinged sputum and increased lower extremity edema. In the ER, the patient was evaluated. Initial vital signs showed a low grade temperature of 99.8, pulse 70, respirations 24, blood pressure 120/59 , saturation 94% on 2 liters via nasal cannula. The patient has been noted to be coughing continuous ly almost with a thick tinge of blood sputum, also noted with increased edema of the leg with some er ythema. Case discussed with daughter at bedside regarding plan of care and overall patient's conditi on. The patient currently denies any chest pain. Does report mild shortness of breath and ongoing c ough and generalized weakness and poor appetite the last few days. PAST MEDICAL HISTORY: Includes CHF, hypertension, atrial fibrillation, pacemaker placement, BPH, his tory of abdominal aortic aneurysm status post stenting, coronary artery disease, history of carotid s tenosis status post carotid endarterectomy, possible mild vascular dementia. ALLERGIES: CODEINE. SURGICAL HISTORY: Includes pacemaker placement, CABG, 2-vessel disease, valvular heart surgery, abdo concepcion aortic aneurysm, carotid endarterectomy. SOCIAL HISTORY: Socially used tobacco in the past. IV drug abuse: None. Alcohol: None. Used to drink 5 years ago more than social. The patient is . He has 1 child. The patient is ambula tory with a walker. REVIEW OF SYSTEMS: Per HPI. See above. PHYSICAL EXAMINATION: VITAL SIGNS: Temperature 99.8, pulse 70, respirations 24, blood pressure 120/59, saturation 94% on 2 liters. GENERAL: The patient is in no acute distress. Coughing frequently. CARDIOVASCULAR: S1 and S2. LUNGS: Rhonchi and wheezing bilaterally, mild to moderate. ABDOMEN: Soft, nontender. EXTREMITIES: A +2 edema of lower extremities with erythema of the lower extremities suggestive of mi ld cellulitis. No wounds appreciated. The patient does have pain in the left shoulder upon movement . This is not new, he had it from last admission. Slight neck stiffness is noted and pain in the ne ck. LABORATORY DATA: White count is 10, hemoglobin 13.3, hematocrit 40, platelet counts of 179, neutroph ils 59% monocytes 12%. Chemistry: Sodium 133, potassium 3.9, chloride 93, bicarbonate 31, BUN is 23, creatinine 0.89, and glucose of 99. Lactic acid is 1.2, calcium 9.2. Troponin is negative a t 0.047. INR is 1.17 subtherapeutic. IMAGING TESTS: In the last admission including carotid ultrasound shows no evidence of significant s tenosis on the right or the left. Shoulder x-ray done in the last admission shows moderate degenerat halima change of clavicular joints, mild calcific tendinitis. Echocardiogram also done on the t admission showed EF of 50%. The aortic valve is bioprosthesis, moderate aortic stenosis, normal ri ght atrial pressure. EKG is pending. ASSESSMENT AND PLAN: This is an 88-year-old male with history of extensive cardiac history , mild vascular dementia; atrial fibrillation, has been on Coumadin; BPH, osteoarthritis, who present s with shortness of breath, congestion, acute bronchitis, rule out pneumonia, lower extremity edema, suggestive for CHF exacerbation as well. 1. Respiratory. Continue supportive care with diuretic therapy, breathing treatments. We will add IV steroids due to acute bronchitis and tinge of blood in the sputum for anti-inflammatory effect. C ough suppressant will be provided and followup admitting chest x-ray. May consider CT scan of the est to rule out any other pathologies versus a lung mass, etc. We will consult pulmonary. We will ob tain sputum cultures as well. O2 support will be provided. 2. Cardiovascular: The patient with history of atrial fibrillation and on blood thinners due to barbi ve surgery. We will consult cardiology due to positive blood-tinged sputum, as we will need to les nue anticoagulate the patient. The patient will be provided with IV diuretic therapy. Follow up BNP and follow up cardiology recommendations. 3. The patient will be placed on Protonix for GI prophylaxis. 4. Left shoulder pain with a history of trauma. We will obtain an x-ray. Also, obtain an x-ray of the cervical spine due to pain, likely torticollis. We will again obtain an x-ray. 5. Benign prostatic hypertrophy. Continue BPH medications. 6. Diet to be advanced as tolerated. I spoke with the daughter at bedside regarding the patient's plan of care and answered all her questi ons. We will follow. Dictated By: RICHARDSON FATIMA/DEVEN Conf#: [id number] DID#: [id number] CC: YOGESH KAN MD;*EndCC*
[2019-03-26] MEDS ORDERED: VANCOMYCIN 1 GM in 250 ML IVPB ONE (18:00)
[2019-03-26 20:00] VITALS: BP 129/61; PULSE 70; RESP 20
[2019-03-26] MEDS: GUAIFENESIN LA 600 MG TABSR PO SCH (20:32)
[2019-03-26] MEDS: MIRTAZAPINE 15 MG TAB PO SCH (20:32)
[2019-03-26] MEDS: HEPARIN 5,000 UNIT/1 ML VIAL SC SCH (21:00)
[2019-03-26 23:40] VITALS: Ht 175.3 cm; Wt 101.6 kg
[2019-03-27] MEDS: CEFEPIME 1GM/50 ML (PMX) 50 ML IVPB SCH ×3 (00:56→20:29)
[2019-03-27 02:00] VITALS: BP 124/60; PULSE 70; RESP 20
[2019-03-27] MEDS: PANTOPRAZOLE (EC) 40 MG TAB PO SCH (05:41)
[2019-03-27 08:00] VITALS: BP 140/66; PULSE 70; RESP 18
[2019-03-27] MEDS: ASCORBIC ACID 500 MG TAB PO SCH (08:16)
[2019-03-27] MEDS: POTASSIUM CHLORIDE (SR) 20 MEQ TAB PO SCH (08:16)
[2019-03-27] MEDS: MULTIVITAMINS THERAPEUTIC TAB PO SCH (08:16)
[2019-03-27] MEDS: GUAIFENESIN LA 600 MG TABSR PO SCH ×2 (08:16→20:28)
[2019-03-27] MEDS: FINASTERIDE 5 MG TAB PO SCH (08:17)
[2019-03-27] MEDS: BETA CAROTENE/VIT C/E/MIN TAB PO SCH (08:17)
[2019-03-27] MEDS: METHYLPREDNISOLONE 40 MG INJ IV SCH ×2 (08:19→20:28)
[2019-03-27] MEDS: BENAZEPRIL 10 MG TAB PO SCH (08:19)
[2019-03-27] MEDS: FUROSEMIDE 40 MG INJ IV SCH ×2 (08:19→20:39)
[2019-03-27] MEDS: HEPARIN 5,000 UNIT/1 ML VIAL SC SCH ×2 (08:37→20:29)
[2019-03-27] MEDS: ALBUTEROL/IPRATROPIUM (NEB) 3 ML AMP HHN SCH ×2 (08:40→20:00)
--- NOTE | 2019-03-27 09:19 | CONS ---
Assessment/Plan Assessment/Plan Hospital Course (Demo Recall) 1. Bronchitis./ ? PNEUMONIA and possibly mild hemoptysis 2. Atrial fibrillation 3. 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 History of valvular heart disease status post aortic valve replacement 5. History of peripheral vascular disease status post aortic aneurysm repair 6. Hypertension 7. Dyslipidemia 8. Dementia Recommendations: We will try to get the patient pacemaker information to find out what company his pacemaker is to have it interrogated. ABX as per Dr Peterson but will hold zirthromax for now due to interaction with coumadin adjust coumadin daily . goal INR 2-3 OFF OF betablocker due to wheezing pulm care as per IM will check labs in am including procalcitonin level Thank you for his referral. We will continue to follow along with you SIMEON RICO MD [facility] Consultation Date/Type/Reason Admit Date/Time Mar 26, 2019 at 14:34 Date of Consultation: Mar 27, 2019 Type of Consult Cardiology Reason for Consultation valvular heart disease. AFIB Requesting Provider: RICHARDSON PETERSON MD Date/Time of Note DATE: 03/27/19 TIME: 09:05 Hx of Present Illness Interventional cardiology consultation note Chief complaint: Cough. Shortness of breath Reason for consult: Valvular heart disease. Atrial fibrillation. History of present illness: Thank you for this referral. History of the muscular review of the chart review of the ulcer discussion physician staff. Patient is himself has a poor memory unable to provide reliable history to me. This is an 88-year-old male with history of extensive cardiac history including CHF, hypertension, atrial fibrillation on Coumadin, aortic valve surgery, CABG, 2-vessel disease, abdominal aortic aneurysm repair, who currently resides at the assisted living facility at [facility]. Patient was admitted to the hospital because in the past few days he has been reporting i ncreased cough, chest congestion and lower extremity edema. The patient was started on Augmentin as outpatient, but overall symptoms worsen and they decided to bring him to the hospital due to increased cough, blood-tinged sputum and increased lower extremity edema. Patient himself is unaware of why he is in the hospital and does not complain of anything to me at the moment. 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 History of aortic valve replacement with a bioprosthetic aortic valve. History of likely left atrial appendage closure based on the CT results ALLERGIES: CODEINE. SURGICAL HISTORY: Includes pacemaker placement, CABG, 2-vessel disease, valvular heart surgery, abdominal aortic aneurysm, carotid endarterectomy. SOCIAL HISTORY: Socially used tobacco in the past. IV drug abuse: None. Alcohol: None. Used to drink 5 years ago more than social. The patient is . He has 1 child. The patient is ambulatory with a walker. Medications were reviewed as per medical reconciliation sheet Family history: No reported history of early coronary artery disease Review of system: Patient denies all others except for above-mentioned Past Medical History Home Meds Reported Medications Warfarin Sodium* (Coumadin*) 2.5 Mg Tablet, 2.5 MG PO DAILY, TAB START 12/24/18 01/06/19 Acetaminophen* (Acetaminophen*) 325 Mg Tablet, 650 MG PO Q6H PRN for MILD PAIN LEVEL 1-3, #30 TAB 01/06/19 Metolazone* (Metolazone*) 5 Mg Tablet, 5 MG PO DAILY, TAB 01/06/19 Calcium Carbonate/Vitamin D3 (OYSTERCAL-D 500 MG-400 UNIT TB) 1 Each Tablet, 1 EACH PO BID, TAB 01/06/19 Ascorbic Acid (Vitamin C) 500 Mg Tab, 500 MG PO DAILY, TAB 01/06/19 Simvastatin* (Zocor*) 10 Mg Tablet, 10 MG PO QHS, #30 TAB 01/06/19 Potassium Chloride* (Potassium Chloride*) 20 Meq Tablet.er, 20 MEQ PO DAILY, TAB.SA 01/06/19 Pantoprazole* (Pantoprazole*) 40 Mg Tablet.dr, 40 MG PO AC BREAKFAST, TAB 01/06/19 Vit A,C & E/Lutein/Minerals (Ocuvite) 1 Each Tablet, 1 TAB PO DAILY, TAB 01/06/19 Multivitamins* (Theragran*) 1 Tab Tab, 1 TAB PO DAILY, TAB 01/06/19 Mirtazapine* (Mirtazapine*) 15 Mg Tablet, 15 MG PO HS, TAB 01/06/19 Furosemide* (Furosemide*) 40 Mg Tablet, 40 MG PO DAILY, TAB 01/06/19 Finasteride* (Finasteride*) 5 Mg Tablet, 5 MG PO DAILY, TAB 01/06/19 Benazepril Hcl* (Benazepril Hcl*) 10 Mg Tablet, 10 MG PO DAILY, #30 TAB 01/06/19 Medications Current Medications Ondansetron HCl (Zofran Inj) 4 mg BRIDGE ORDER PRN IV NAUSEA/VOMITING; Start 03/26/19 at 15:00; Stop 03/27/19 at 14:59 Acetaminophen (Tylenol Tab) 650 mg ER BRIDGE PRN PO .MILD PAIN 1-3 OR TEMP; Start 03/26/19 at 15:00; Stop 03/27/19 at 14:59 IV Flush (NS 3 ml) 3 ml PER PROTOCOL IV ; Start 03/26/19 at 15:00 Ondansetron HCl (Zofran Inj) 4 mg Q6H PRN IV NAUSEA/VOMITING; Start 03/26/19 at 15:00 Furosemide (Lasix) 20 mg Q12 IV Last administered on 03/27/19at 08:19; Admin Dose 20 MG; Start 03/26/19 at 15:00 Acetaminophen (Tylenol Tab) 650 mg Q6H PRN PO .PAIN 1-3 OR TEMP; Start 03/26/19 at 15:00 Morphine Sulfate (morphine) 2 mg Q4H PRN IV .PAIN 7-10; Start 03/26/19 at 15:00 Docusate Sodium (Colace) 100 mg Q12H PRN PO .CONSTIPATION; Start 03/26/19 at 15:00 Magnesium Hydroxide (Milk Of Mag) 30 ml DAILY PRN PO .CONSTIPATION; Start 03/26/19 at 15:00 Pantoprazole (Protonix Tab) 40 mg DAILY@06 PO Last administered on 03/27/19at 05:41; Admin Dose 40 MG; Start 03/27/19 at 06:00 Ascorbic Acid (Vitamin C) 500 mg DAILY PO Last administered on 03/27/19at 08:16; Admin Dose 500 MG; Start 03/27/19 at 09:00 Benazepril HCl (Lotensin) 10 mg DAILY PO Last administered on 03/27/19at 08:19; Admin Dose 10 MG; Start 03/27/19 at 09:00 Finasteride (Proscar) 5 mg DAILY PO Last administered on 03/27/19 08:17; Admin Dose 5 MG; Start 03/27/19 at 09:00 Mirtazapine (Remeron) 15 mg HS PO Last administered on 03/26/19 20:32; Admin Dose 15 MG; Start 03/26/19 at 21:00 Multivitamins Therapeutic (Theragran) 1 tab DAILY PO Last administered on 03/27/19 08:16; Admin Dose 1 TAB; Start 03/27/19 at 09:00 Potassium Chloride (Klor-Con 20) 20 meq DAILY PO Last administered on 03/27/19 08:16; Admin Dose 20 MEQ; Start 03/27/19 at 09:00 Beta Carotene (Ocuvite) 1 tab DAILY PO Last administered on 03/27/19 08:17; Admin Dose 1 TAB; Start 03/27/19 at 09:00 Cefepime HCl 50 ml @ 100 mls/hr Q12 IVPB Last administered on 03/27/19 08:19; Admin Dose 100 MLS/HR; Start 03/27/19 at 01:00 Vancomycin HCl (Vanco Iv Per Pharmacy) VANCOMYCIN PER PHARMACY PER PROTOCOL XX ; Start 03/26/19 at 15:00 Albuterol/ Ipratropium (Duoneb) 3 ml Q6HWA RESP THERAPY HHN Last administered on 03/26/19 15:58; Admin Dose 3 ML; Start 03/26/19 at 20:00 Azithromycin 250 ml @ 250 mls/hr DAILY IVPB Last administered on 03/26/19 17:47; Admin Dose 250 MLS/HR; Start 03/26/19 at 15:00 Methylprednisolone Sodium Succinate (Solu-Medrol) 40 mg Q12 IV Last a dministered on 03/27/19 08:19; Admin Dose 40 MG; Start 03/26/19 at 15:00 Heparin Sodium (Porcine) (Heparin (5000 Units/1ml)) 5,000 unit BID SC Last administered on 03/27/19 08:37; Admin Dose 5,000 UNIT; Start 03/26/19 at 21:00 Warfarin Sodium (Coumadin) 3 mg DAILY@17 PO Last administered on 03/26/19 21:35; Admin Dose 3 MG; Start 03/26/19 at 17:00 Albuterol/ Ipratropium (Duoneb) 3 ml Q2 PRN HHN shorntess of breath; Start 03/26/19 at 15:30 Guaifenesin (Mucinex) 600 mg BID PO Last administered on 03/27/19at 08:16; Admin Dose 600 MG; Start 03/26/19 at 21:00 Guaifenesin/ Dextromethorphan (Robitussin Dm Liquid Cup) 5 ml Q4 PRN PO cough Last administered on 03/27/19at 00:56; Admin Dose 5 ML; Start 03/26/19 at 15:30 Vancomycin HCl 1.5 gm/Sodium Chloride 250 ml @ 83.333 mls/ hr Q24H IVPB ; Start 03/27/19 at 20:00 Allergies: Coded Allergies: codeine (Unverified Allergy, Unknown, 01/06/19) Social History Smoking Status: Never smoker Exam/Review of Systems Vital Signs Vitals Vital Signs Date Temp Pulse Resp B/P (MAP) Pulse Ox O2 O2 Flow FiO2 Time Delivery Rate 03/27/19 98.0 70 18 140/66 93 Room Air 08:00 (90) 03/26/19 21 21:15 03/26/19 2.0 17:30 Intake and Output 03/26/19 03/26/19 03/27/19 1515:00 23:00 07:00 IntakeIntake Total 250 ml 580 ml OutputOutput Total 800 ml BalanceBalance 250 ml -220 ml Exam Exam General: no acute distress HEENT: NC/AT. pupils are equal. round. NECK: NO JVD. no stridor. CV: RRR. systolic murmur; no gallop or rubs. PULM: Mild wheezing GI: SOFT, NT, ND, no rebound or guarding Extremity: trace B/L LE edema. no clubbing. neuro: awake and alert, OX2. Psych: calm and pleasant rectal: deferred : normal CT of the chest on the emergency room shows: Mild peribronchial thickening in bilateral lower lobes. Dual chamber cardiac pa cemaker with battery in left chest wall. Left atrial appendage closure device apparent. Prosthetic aortic valve. Sternal wires and surgical clips. Atherosclerosis. Cholelithiasis Review of the old chart showed patient had an echocardiogram done December 2018 which was also personally reviewed and has shown: here is mild enlargement of right atrium. There is severe enlargement of left atrium. Normal left ventricular systolic function. Normal left ventricular cavity size. Severe asymmetric septal hypertrophy. Paradoxical septal motion consistent with RV pacemaker. Ejection fraction is visually estimated at 50 %. Tissue Doppler/Mitral Doppler indices are consistent with impaired relaxation (Stage I diastolic dysfunction). Mild mitral leaflet calcification. Mild mitral annular calcification. Trace mitral regurgitation. Normal appearance of the tricuspid valve. Estimated peak PA systolic pressure 39 mmHg. There is mild tricuspid regurgitation. Aortic Valve Bio Prosthesis. Moderate aortic stenosis. Aortic valve Max velocity 2.48 m/sec. Max PG 25.00 mmHg. Mean PG 12.00 mmHg. Aortic cusps appear moderately calcified. Labs Result Diagram: 03/27/19 0425 03/27/19 0425 Results 24hrs Laboratory Tests Test 03/26/19 14:14 03/26/19 14:33 03/26/19 15:44 03/27/19 04:25 White Blood Count 10.0 7.1 # Red Blood Count 4.35 L 4.23 L Hemoglobin 13.3 L 13.1 L Hematocrit 39.7 L 37.7 L Mean Corpuscular 91.3 89.1 Volume Mean Corpuscular 30.6 31.0 Hemoglobin Mean Corpuscular 33.5 34.7 Hemoglobin Concent Red Cell 13.7 13.6 Distribution Width Platelet Count 179 170 Mean Platelet Volume 9.6 9.8 Immature 0.300 0.700 H Granulocytes % Neutrophils % 59.3 84.1 H Lymphocytes % 27.0 12.4 L Monocytes % 12.3 H 2.7 Eosinophils % 0.9 0.0 Basophils % 0.2 0.1 Nucleated Red Blood 0.0 0.0 Cells % Immature 0.030 0.050 H Granulocytes # Neutrophils # 5.9 6.0 Lymphocytes # 2.7 0.9 Monocytes # 1.2 H 0.2 L Eosinophils # 0.1 0.0 Basophils # 0.0 0.0 Nucleated Red Blood 0.0 0.0 Cells # Prothrombin Time 15.0 #H 15.9 H Prothrombin Time 1.2 1.2 Ratio INR International 1.17 1.26 Normalized Ratio Activated 27.4 Partial Thromboplast Time Sodium Level 133 L 136 Potassium Level 3.9 3.4 L Chloride Level 93 L 96 L Carbon Dioxide Level 31 31 Anion Gap 9 9 Blood Urea Nitrogen 23 H 22 H Creatinine 0.89 0.75 Est Glomerular Filtrat Rate mL/min Glucose Level 99 154 Calcium Level 9.2 8.9 Troponin I 0.047 B-Type Natriuretic 1930 H Peptide POC Venous Lactate 1.2 Lactic Acid Level 1.0 Hemoglobin A1c 5.3 Total Bilirubin 1.1 Direct Bilirubin 0.00 Indirect Bilirubin 1.1 Aspartate Amino 58 H Transf (AST/SGOT) Alanine 33 Aminotransferase (AL T/SGPT) Alkaline Phosphatase 45 Total Protein 5.9 L Albumin 3.3 Globulin 2.60 Albumin/Globulin 1.26 Ratio Triglycerides Level 43 Cholesterol Level 122 LDL Cholesterol, 70 Calculated HDL Cholesterol 43 Cholesterol/HDL 2.8 Ratio Thyroid Stimulating 0.798 Hormone (TSH) Medications Medications Current Medications Ondansetron HCl (Zofran Inj) 4 mg BRIDGE ORDER PRN IV NAUSEA/VOMITING; Start 03/26/19 at 15:00; Stop 03/27/19 at 14:59 Acetaminophen (Tylenol Tab) 650 mg ER BRIDGE PRN PO .MILD PAIN 1-3 OR TEMP; Start 03/26/19 at 15:00; Stop 03/27/19 at 14:59 IV Flush (NS 3 ml) 3 ml PER PROTOCOL IV ; Start 03/26/19 at 15:00 Ondansetron HCl (Zofran Inj) 4 mg Q6H PRN IV NAUSEA/VOMITING; Start 03/26/19 at 15:00 Furosemide (Lasix) 20 mg Q12 IV Last administered on 03/27/19at 08:19; Admin Dose 20 MG; Start 03/26/19 at 15:00 Acetaminophen (Tylenol Tab) 650 mg Q6H PRN PO .PAIN 1-3 OR TEMP; Start 03/26/19 at 15:00 Morphine Sulfate (morphine) 2 mg Q4H PRN IV .PAIN 7-10; Start 03/26/19 at 15:00 Docusate Sodium (Colace) 100 mg Q12H PRN PO .CONSTIPATION; Start 03/26/19 at 15:00 Magnesium Hydroxide (Milk Of Mag) 30 ml DAILY PRN PO .CONSTIPATION; Start 03/26/19 at 15:00 Pantoprazole (Protonix Tab) 40 mg DAILY@06 PO Last administered on 03/27/19at 05:41; Admin Dose 40 MG; Start 03/27/19 at 06:00 Ascorbic Acid (Vitamin C) 500 mg DAILY PO Last administered on 03/27/19 08:16; Admin Dose 500 MG; Start 03/27/19 at 09:00 Benazepril HCl (Lotensin) 10 mg DAILY PO Last administered on 03/27/19 08:19; Admin Dose 10 MG; Start 03/27/19 at 09:00 Finasteride (Proscar) 5 mg DAILY PO Last administered on 03/27/19 08:17; Admin Dose 5 MG; Start 03/27/19 at 09:00 Mirtazapine (Remeron) 15 mg HS PO Last administered on 03/26/19 20:32; Admin Dose 15 MG; Start 03/26/19 at 21:00 Multivitamins Therapeutic (Theragran) 1 tab DAILY PO Last administered on 03/27/19 08:16; Admin Dose 1 TAB; Start 03/27/19 at 09:00 Potassium Chloride (Klor-Con 20) 20 meq DAILY PO Last administered on 03/27/19 08:16; Admin Dose 20 MEQ; Start 03/27/19 at 09:00 Beta Carotene (Ocuvite) 1 tab DAILY PO Last administered on 03/27/19 08:17; Admin Dose 1 TAB; Start 03/27/19 at 09:00 Cefepime HCl 50 ml @ 100 mls/hr Q12 IVPB Last administered on 03/27/19 08:19; Admin Dose 100 MLS/HR; Start 03/27/19 at 01:00 Vancomycin HCl (Vanco Iv Per Pharmacy) VANCOMYCIN PER PHARMACY PER PROTOCOL XX ; Start 03/26/19 at 15:00 Albuterol/ Ipratropium (Duoneb) 3 ml Q6HWA RESP THERAPY HHN Last administered on 03/26/19 15:58; Admin Dose 3 ML; Start 03/26/19 at 20:00 Azithromycin 250 ml @ 250 mls/hr DAILY IVPB Last administered on 03/26/19 17:47; Admin Dose 250 MLS/HR; Start 03/26/19 at 15:00 Methylprednisolone Sodium Succinate (Solu-Medrol) 40 mg Q12 IV Last administered on 03/27/19 08:19; Admin Dose 40 MG; Start 03/26/19 at 15:00 Heparin Sodium (Porcine) (Heparin (5000 Units/1ml)) 5,000 unit BID SC Last administered on 03/27/19at 08:37; Admin Dose 5,000 UNIT; Start 03/26/19 at 21:00 Warfarin Sodium (Coumadin) 3 mg DAILY@17 PO Last administered on 03/26/19at 21:35; Admin Dose 3 MG; Start 03/26/19 at 17:00 Albuterol/ Ipratropium (Duoneb) 3 ml Q2 PRN HHN shorntess of breath; Start 03/26/19 at 15:30 Guaifenesin (Mucinex) 600 mg BID PO Last administered on 03/27/19at 08:16; Admin Dose 600 MG; Start 03/26/19 at 21:00 Guaifenesin/ Dextromethorphan (Robitussin Dm Liquid Cup) 5 ml Q4 PRN PO cough Last administered on 03/27/19at 00:56; Admin Dose 5 ML; Start 03/26/19 at 15:30 Vancomycin HCl 1.5 gm/Sodium Chloride 250 ml @ 83.333 mls/ hr Q24H IVPB ; Start 03/27/19 at 20:00 SIMEON RICO MD Mar 27, 2019 09:16
[2019-03-27 14:00] VITALS: BP 98/54; PULSE 70; RESP 19
[2019-03-27] MEDS: WARFARIN 5 MG TAB PO SCH (17:35)
--- NOTE | 2019-03-27 17:52 | CONS ---
DATE OF ADMISSION: 03/26/2019 DATE OF CONSULTATION: 03/27/2019 TYPE OF CONSULTATION: Pulmonary. REASON FOR CONSULTATION: Shortness of breath, hemoptysis. Thank you, Dr. Marlow, for this consultation. HISTORY OF PRESENT ILLNESS: This is an 88-year-old gentleman with multiple medical problems includin g atrial fibrillation on anticoagulation, prosthetic aortic valve, congestive cardiac failure with pa cemaker in place, who has come in with several-day history of increasing cough, congestion, intermitt ent moderate hemoptysis. The patient states he has had intermittent hemoptysis for a while. Denies any weight loss, no nausea, no vomiting, no prior history of tobacco use per patient. He in addition has mild dementia and has decreased mobility, currently living in assisted living facility. PAST MEDICAL HISTORY: As above. MEDICATIONS: Per chart. ALLERGIES: CODEINE. SYSTEMS REVIEW: A 12-point review of systems was negative other than that mentioned above. PHYSICAL EXAMINATION: GENERAL: Elderly-appearing gentleman, awake, alert, oriented, comfortable at rest, no acute distress . VITAL SIGNS: Currently afebrile, pulse is 70, blood pressure 98/54, O2 saturation 93% on room air. NECK: Supple. No JVD or lymphadenopathy. CARDIAC: S1, S2. No added sounds or murmurs. CHEST: Diminished air entry bilaterally. ABDOMEN: Soft, nontender. No guarding or rebound. EXTREMITIES: No cyanosis, clubbing, edema. NEUROLOGICAL: Grossly intact. No focal deficits. DIAGNOSTIC STUDIES: Chest CT findings showed mild peribronchial thickening, pacemaker in place with prosthetic aortic valve. Lower extremity Dopplers were negative for deep vein thrombosis. IMPRESSION AND PLAN: Tracheobronchitis probable congestive cardiac failure with a history of atrial fibrillation and chronic anticoagulation. Hemoptysis, likely secondary to a bronchitis with underlying anticoagulati on, although concern is obviously for endobronchial lesion. This was discussed with family at [facility] and we discussed possibility of performing bronchoscopy; however, in an elderly gentleman with his comorbidities, this has some risk attached. Plan is to continue with bronchodilator treatment, antib iotics, anticoagulation for his prosthetic valve, DVT and gastrointestinal prophylaxis with a rapid s teroid taper. Case was discussed with family at bedside at length. Dictated By: MONICO OLVERA/DEVEN Conf#: [id number] DID#: [id number] CC: RICHARDSON MARLOW MD;*End*
[2019-03-27 20:00] VITALS: BP 96/45; PULSE 73; RESP 18
[2019-03-27] MEDS ORDERED: VANCOMYCIN HCL 1.5 GM in SOD CHLORIDE 0.9% 250 ML IVPB SCH (20:00)
[2019-03-27] MEDS: MIRTAZAPINE 15 MG TAB PO SCH (20:28)
[2019-03-28 02:00] VITALS: BP 124/58; PULSE 70; RESP 17
[2019-03-28] MEDS: PANTOPRAZOLE (EC) 40 MG TAB PO SCH (06:24)
[2019-03-28 08:04] VITALS: BP 158/76; PULSE 71; RESP 18
[2019-03-28] MEDS: ALBUTEROL/IPRATROPIUM (NEB) 3 ML AMP HHN SCH ×3 (08:34→20:35)
[2019-03-28] MEDS: ASCORBIC ACID 500 MG TAB PO SCH (09:47)
[2019-03-28] MEDS: GUAIFENESIN LA 600 MG TABSR PO SCH ×2 (09:47→20:59)
[2019-03-28] MEDS: POTASSIUM CHLORIDE (SR) 20 MEQ TAB PO SCH (09:47)
[2019-03-28] MEDS: MULTIVITAMINS THERAPEUTIC TAB PO SCH (09:47)
[2019-03-28] MEDS: METHYLPREDNISOLONE 40 MG INJ IV SCH ×2 (09:47→20:58)
[2019-03-28] MEDS: FINASTERIDE 5 MG TAB PO SCH (09:47)
[2019-03-28] MEDS: BETA CAROTENE/VIT C/E/MIN TAB PO SCH (09:47)
[2019-03-28] MEDS: HEPARIN 5,000 UNIT/1 ML VIAL SC SCH ×2 (09:48→21:01)
[2019-03-28] MEDS: BENAZEPRIL 10 MG TAB PO SCH (09:48)
[2019-03-28] MEDS: FUROSEMIDE 40 MG INJ IV SCH (09:48)
[2019-03-28] MEDS: CEFEPIME 1GM/50 ML (PMX) 50 ML IVPB SCH ×2 (10:03→20:57)
--- NOTE | 2019-03-28 10:47 | PN ---
DATE: 03/28/2019 PHYSICAL EXAMINATION: The patient seen, appears to be comfortable, in no distress. VITAL SIGNS: Temperature 97.5, pulse 72, respirations 18, blood pressure 150/76, earlier it was 124/ 58 and 96/45, saturation 94% on room air. GENERAL: No acute distress. HEENT: Normocephalic, atraumatic, pale. CARDIOVASCULAR: S1, S2, regular rate. LUNGS: Faint rhonchi at the bases. ABDOMEN: Soft, nontender. EXTREMITIES: No clubbing, cyanosis, or edema. LABORATORY DATA: White count 15.3, hemoglobin 12.3, hematocrit 36, platelet count of 172, neutrophil s 88%, lymphs 17%. Chemistry: Sodium 134, potassium 4.0, chloride 95, bicarbonate 30, BUN is 31, cr eatinine 0.89, glucose of 134, AST 56. BNP is 2580. INR 1.3, still subtherapeutic. MEDICATIONS: Reviewed: 1. Coumadin 5 mg daily. 2. Vitamin C 500 mg daily. 3. Lotensin 10 mg daily. 4. ____ daily. 5. Multivitamin 1 tablet daily. 6. KCl 20 units daily. 7. Ocuvite 1 tab daily. 8. Protonix 40 mg daily. 9. Cefepime 1 gram q.12 hours. 10. Mirtazapine 15 mg at bedtime. 11. Heparin 5000 b.i.d. 12. Mucinex 600 b.i.d. 13. DuoNeb as directed. 14. Albuterol every 2 hours. 15. Robitussin p.r.n. 16. Zofran p.r.n. 17. Lasix 20 IV q.12 hours. 18. Tylenol p.r.n. 19. Morphine p.r.n. 20. Milk of magnesia p.r.n. 21. Solu-Medrol 40 mg IV q.12 hours. ASSESSMENT AND PLAN: This is an 88-year-old male with history of extensive cardiac history of mild vascular dementia, atrial fibrillation on Coumadin, BPH, osteoarthritis, who presented with shortness of breath, congestion, acute bronchitis, rule out pneumonia. Lower extremity edema suggest halima of congestive heart failure exacerbation as well. 1. Respiratory: Overall improving with antibiotics, breathing treatments, steroids, suctioning and diuretic therapy. Taper steroids down and change Lasix to oral route until clinically better. ____ to see medications are being provided. 2. Cardiovascular. The patient with atrial fibrillation, still subtherapeutic INR. Continue Coumad in 5 mg daily. Follow up INR tomorrow. Change Lasix to oral route as patient's lungs have improved and edema has resolved. 3. Continue Protonix for GI prophylaxis. 4. Left shoulder pain and neck pain improved with above Solu-Medrol. 5. Physical therapy as tolerated. 6. Benign prostatic hypertrophy. Continue oral meds. 7. Clinically better disposition likely in the a.m. 8. Infectious disease. The patient remains on broad-spectrum antibiotic. Would deescalate antibiot ic and switch to oral Levaquin, as patient has likely tracheal bronchitis. Most likely again maligna ncy is in the differential as noted Dr. Cortes's report regarding possible bronchoscopy, but in the meantime, just conservative management is the plan. We will follow. Possible discharge planning for tomorrow. 9. Depression. Continue Remeron. Dictated By: RICHARDSON FATIMA/DEVEN Conf#: [id number] DID#: [id number]
[2019-03-28 15:20] VITALS: BP 139/72; PULSE 79; RESP 18
--- NOTE | 2019-03-28 15:32 | CONS ---
Consult Date/Type/Reason Admit Date/Time Mar 26, 2019 at 14:34 Initial Consult Date 03/27/19 Type of Consultation: Pulm Requesting Provider: RICHARDSON PETERSON MD Date/Time of Note DATE: 03/28/19 TIME: 15:28 Subjective No events. Continuing to follow hemoptysis output. Minimal noted. Objective Vitals Vital Signs Date Temp Pulse Resp B/P (MAP) Pulse Ox O2 O2 Flow FiO2 Time Delivery Rate 03/28/19 97.7 79 18 139/72 96 15:20 (94) 03/28/19 21 14:06 03/27/19 Room Air 14:00 03/26/19 2.0 17:30 Intake and Output 03/27/19 03/27/19 03/28/19 1515:00 23:00 07:00 IntakeIntake Total 50 ml 950 ml 250 ml OutputOutput Total 600 ml 875 ml BalanceBalance 50 ml 350 ml -625 ml Exam HEENT: Neck supple; no JVD; no LAD CVS: Irreg irreg, S1 and S2 CHEST: Clear ABD: Soft, NT, + BS EXT: No c/c/e Results/Medications Result Diagram: 03/28/19 0605 03/28/19 0605 Results 24 hrs Laboratory Tests Test 03/28/19 06:04 03/28/19 06:05 Prothrombin Time 16.3 H Prothrombin Time Ratio 1.3 INR International Normalized Ratio 1.30 Phosphorus Level 3.9 Free Thyroxine 1.33 White Blood Count 15.3 #H Red Blood Count 4.01 L Hemoglobin 12.3 L Hematocrit 35.8 L Mean Corpuscular Volume 89.3 Mean Corpuscular Hemoglobin 30.7 Mean Corpuscular Hemoglobin Concent 34.4 Red Cell Distribution Width 13.5 Platelet Count 172 Mean Platelet Volume 9.7 Immature Granulocytes % 0.800 H Neutrophils % 87.6 H Lymphocytes % 8.1 L Monocytes % 3.4 Eosinophils % 0.0 Basophils % 0.1 Nucleated Red Blood Cells % 0.0 Immature Granulocytes # 0.120 H Neutrophils # 13.4 H Lymphocytes # 1.2 Monocytes # 0.5 Eosinophils # 0.0 Basophils # 0.0 Nucleated Red Blood Cells # 0.0 Sodium Level 134 L Potassium Level 4.0 Chloride Level 95 L Carbon Dioxide Level 30 Anion Gap 9 Blood Urea Nitrogen 31 H Creatinine 0.89 Est Glomerular Filtrat Rate mL/min Glucose Level 134 Calcium Level 8.8 Magnesium Level 2.0 Total Bilirubin 0.8 Direct Bilirubin 0.00 Indirect Bilirubin 0.8 Aspartate Amino Transf (AST/SGOT) 56 H Alanine Aminotransferase (ALT/SGPT) 35 Alkaline Phosphatase 45 B-Type Natriuretic Peptide 2580 H Total Protein 5.8 L Albumin 3.3 Globulin 2.50 Albumin/Globulin Ratio 1.32 Triglycerides Level 65 Cholesterol Level 128 LDL Cholesterol, Calculated 73 HDL Cholesterol 42 Cholesterol/HDL Ratio 3.0 Thyroid Stimulating Hormone (TSH) 0.553 Home Meds Reported Medications Warfarin Sodium* (Coumadin*) 2.5 Mg Tablet, 2.5 MG PO DAILY, TAB START 12/24/18 01/06/19 Acetaminophen* (Acetaminophen*) 325 Mg Tablet, 650 MG PO Q6H PRN for MILD PAIN LEVEL 1-3, #30 TAB 01/06/19 Metolazone* (Metolazone*) 5 Mg Tablet, 5 MG PO DAILY, TAB 01/06/19 Calcium Carbonate/Vitamin D3 (OYSTERCAL-D 500 MG-400 UNIT TB) 1 Each Tablet, 1 EACH PO BID, TAB 01/06/19 Ascorbic Acid (Vitamin C) 500 Mg Tab, 500 MG PO DAILY, TAB 01/06/19 Simvastatin* (Zocor*) 10 Mg Tablet, 10 MG PO QHS, #30 TAB 01/06/19 Potassium Chloride* (Potassium Chloride*) 20 Meq Tablet.er, 20 MEQ PO DAILY, TAB.SA 01/06/19 Pantoprazole* (Pantoprazole*) 40 Mg Tablet.dr, 40 MG PO AC BREAKFAST, TAB 01/06/19 Vit A,C & E/Lutein/Minerals (Ocuvite) 1 Each Tablet, 1 TAB PO DAILY, TAB 01/06/19 Multivitamins* (Theragran*) 1 Tab Tab, 1 TAB PO DAILY, TAB 01/06/19 Mirtazapine* (Mirtazapine*) 15 Mg Tablet, 15 MG PO HS, TAB 01/06/19 Furosemide* (Furosemide*) 40 Mg Tablet, 40 MG PO DAILY, TAB 01/06/19 Finasteride* (Finasteride*) 5 Mg Tablet, 5 MG PO DAILY, TAB 01/06/19 Benazepril Hcl* (Benazepril Hcl*) 10 Mg Tablet, 10 MG PO DAILY, #30 TAB 01/06/19 Medications Current Medications IV Flush (NS 3 ml) 3 ml PER PROTOCOL IV ; Start 03/26/19 at 15:00 Ondansetron HCl (Zofran Inj) 4 mg Q6H PRN IV NAUSEA/VOMITING; Start 03/26/19 at 15:00 Acetaminophen (Tylenol Tab) 650 mg Q6H PRN PO .PAIN 1-3 OR TEMP; Start 03/26/19 at 15:00 Morphine Sulfate (morphine) 2 mg Q4H PRN IV .PAIN 7-10; Start 03/26/19 at 15:00 Docusate Sodium (Colace) 100 mg Q12H PRN PO .CONSTIPATION; Start 03/26/19 at 15:00 Magnesium Hydroxide (Milk Of Mag) 30 ml DAILY PRN PO .CONSTIPATION; Start 03/26/19 at 15:00 Pantoprazole (Protonix Tab) 40 mg DAILY@06 PO Last administered on 03/28/19at 06:24; Admin Dose 40 MG; Start 03/27/19 at 06:00 Ascorbic Acid (Vitamin C) 500 mg DAILY PO Last administered on 03/28/19 09:47; Admin Dose 500 MG; Start 03/27/19 at 09:00 Benazepril HCl (Lotensin) 10 mg DAILY PO Last administered on 03/28/19 09:48; Admin Dose 10 MG; Start 03/27/19 at 09:00 Finasteride (Proscar) 5 mg DAILY PO Last administered on 03/28/19 09:47; Admin Dose 5 MG; Start 03/27/19 at 09:00 Mirtazapine (Remeron) 15 mg HS PO Last administered on 03/27/19at 20:28; Admin Dose 15 MG; Start 03/26/19 at 21:00 Multivitamins Therapeutic (Theragran) 1 tab DAILY PO Last administered on 03/28/19 09:47; Admin Dose 1 TAB; Start 03/27/19 at 09:00 Potassium Chloride (Klor-Con 20) 20 meq DAILY PO Last administered on 03/28/19 09:47; Admin Dose 20 MEQ; Start 03/27/19 at 09:00 Beta Carotene (Ocuvite) 1 tab DAILY PO Last administered on 03/28/19 09:47; Admin Dose 1 TAB; Start 03/27/19 at 09:00 Cefepime HCl 50 ml @ 100 mls/hr Q12 IVPB Last administered on 03/28/19 10:03; Admin Dose 100 MLS/HR; Start 03/27/19 at 01:00 Albuterol/ Ipratropium (Duoneb) 3 ml Q6HWA RESP THERAPY HHN Last administered on 03/28/19 14:05; Admin Dose 3 ML; Start 03/26/19 at 20:00 Methylprednisolone Sodium Succinate (Solu-Medrol) 40 mg Q12 IV Last administered on 03/28/19 09:47; Admin Dose 40 MG; Start 03/26/19 at 15:00 Heparin Sodium (Porcine) (Heparin (5000 Units/1ml)) 5,000 unit BID SC Last administered on 03/28/19 09:48; Admin Dose 5,000 UNIT; Start 03/26/19 at 21:00 Albuterol/ Ipratropium (Duoneb) 3 ml Q2 PRN HHN shorntess of breath Last administered on 03/27/19 19:56; Admin Dose 3 ML; Start 03/26/19 at 15:30 Guaifenesin (Mucinex) 600 mg BID PO Last administered on 03/28/19 09:47; Admin Dose 600 MG; Start 03/26/19 at 21:00 Guaifenesin/ Dextromethorphan (Robitussin Dm Liquid Cup) 5 ml Q4 PRN PO cough Last administered on 03/27/19 00:56; Admin Dose 5 ML; Start 03/26/19 at 15:30 Warfarin Sodium (Coumadin) 5 mg DAILY@17 PO Last administered on 03/27/19 17:35; Admin Dose 5 MG; Start 03/27/19 at 17:00 Furosemide (Lasix) 40 mg DAILY@0600 PO ; Start 03/29/19 at 06:00 Assessment/Plan Assessment/Plan (Daily) IMP: 1. Hemoptysis--likely 2/2 tracheobronchitis in a patient on anticoagulation. CT chest reviewed in detail. There is no obvious endobronchial disease noted. 2. Atrial Fibrillation 3. Leukocytosis 4. Mild ADHR RECS: 1. Taper CS 2. Diuresis 3. Cont to quantify hemoptysis 4. Bronchodilators 5. Anticoagulation for afib YVROSE SNOW MD Mar 28, 2019 15:32
--- NOTE | 2019-03-28 16:27 | CONS ---
Consult Date/Type/Reason Admit Date/Time Mar 26, 2019 at 14:34 Initial Consult Date 03/27/19 Type of Consultation: cv Requesting Provider: RICHARDSON MARLOW MD Date/Time of Note DATE: 03/28/19 TIME: 16:24 Subjective cv follow-up progress note Subjective: Case discussed with the staff. Patient with no chest pain or pressure no palpitation at this point denies shortness of breath PND orthopnea to me Objective: General: no acute distress HEENT: NC/AT. pupils are equal. round. NECK: NO JVD. no stridor. Chest: Status post sternotomy CV: RRR. systolic murmur; no gallop or rubs. PULM: no wheezing or rhonchi. GI: SOFT, NT, ND, no rebound or guarding Extremity: trace B/L LE edema. no clubbing. neuro: awake and alert, OX2. Psych: calm and pleasant rectal: deferred : normal Objective Vitals Vital Signs Date Temp Pulse Resp B/P (MAP) Pulse Ox O2 O2 Flow FiO2 Time Delivery Rate 03/28/19 97.7 79 18 139/72 96 15:20 (94) 03/28/19 21 14:06 03/27/19 Room Air 14:00 03/26/19 2.0 17:30 Intake and Output 03/27/19 03/27/19 03/28/19 1515:00 23:00 07:00 IntakeIntake Total 50 ml 950 ml 250 ml OutputOutput Total 600 ml 875 ml BalanceBalance 50 ml 350 ml -625 ml Results/Medications Result Diagram: 03/28/1960403/28/19 06 Results 24 hrs Laboratory Tests Test 03/28/19 06:04 03/28/19 06:05 Prothrombin Time 16.3 H Prothrombin Time Ratio 1.3 INR International Normalized Ratio 1.30 Phosphorus Level 3.9 Free Thyroxine 1.33 White Blood Count 15.3 #H Red Blood Count 4.01 L Hemoglobin 12.3 L Hematocrit 35.8 L Mean Corpuscular Volume 89.3 Mean Corpuscular Hemoglobin 30.7 Mean Corpuscular Hemoglobin Concent 34.4 Red Cell Distribution Width 13.5 Platelet Count 172 Mean Platelet Volume 9.7 Immature Granulocytes % 0.800 H Neutrophils % 87.6 H Lymphocytes % 8.1 L Monocytes % 3.4 Eosinophils % 0.0 Basophils % 0.1 Nucleated Red Blood Cells % 0.0 Immature Granulocytes # 0.120 H Neutrophils # 13.4 H Lymphocytes # 1.2 Monocytes # 0.5 Eosinophils # 0.0 Basophils # 0.0 Nucleated Red Blood Cells # 0.0 Sodium Level 134 L Potassium Level 4.0 Chloride Level 95 L Carbon Dioxide Level 30 Anion Gap 9 Blood Urea Nitrogen 31 H Creatinine 0.89 Est Glomerular Filtrat Rate mL/min Glucose Level 134 Calcium Level 8.8 Magnesium Level 2.0 Total Bilirubin 0.8 Direct Bilirubin 0.00 Indirect Bilirubin 0.8 Aspartate Amino Transf (AST/SGOT) 56 H Alanine Aminotransferase (ALT/SGPT) 35 Alkaline Phosphatase 45 B-Type Natriuretic Peptide 2580 H Total Protein 5.8 L Albumin 3.3 Globulin 2.50 Albumin/Globulin Ratio 1.32 Triglycerides Level 65 Cholesterol Level 128 LDL Cholesterol, Calculated 73 HDL Cholesterol 42 Cholesterol/HDL Ratio 3.0 Thyroid Stimulating Hormone (TSH) 0.553 Home Meds Reported Medications Warfarin Sodium* (Coumadin*) 2.5 Mg Tablet, 2.5 MG PO DAILY, TAB START 12/24/18 01/06/19 Acetaminophen* (Acetaminophen*) 325 Mg Tablet, 650 MG PO Q6H PRN for MILD PAIN LEVEL 1-3, #30 TAB 01/06/19 Metolazone* (Metolazone*) 5 Mg Tablet, 5 MG PO DAILY, TAB 01/06/19 Calcium Carbonate/Vitamin D3 (OYSTERCAL-D 500 MG-400 UNIT TB) 1 Each Tablet, 1 EACH PO BID, TAB 01/06/19 Ascorbic Acid (Vitamin C) 500 Mg Tab, 500 MG PO DAILY, TAB 01/06/19 Simvastatin* (Zocor*) 10 Mg Tablet, 10 MG PO QHS, #30 TAB 01/06/19 Potassium Chloride* (Potassium Chloride*) 20 Meq Tablet.er, 20 MEQ PO DAILY, TAB.SA 01/06/19 Pantoprazole* (Pantoprazole*) 40 Mg Tablet.dr, 40 MG PO AC BREAKFAST, TAB 01/06/19 Vit A,C & E/Lutein/Minerals (Ocuvite) 1 Each Tablet, 1 TAB PO DAILY, TAB 01/06/19 Multivitamins* (Theragran*) 1 Tab Tab, 1 TAB PO DAILY, TAB 01/06/19 Mirtazapine* (Mirtazapine*) 15 Mg Tablet, 15 MG PO HS, TAB 01/06/19 Furosemide* (Furosemide*) 40 Mg Tablet, 40 MG PO DAILY, TAB 01/06/19 Finasteride* (Finasteride*) 5 Mg Tablet, 5 MG PO DAILY, TAB 01/06/19 Benazepril Hcl* (Benazepril Hcl*) 10 Mg Tablet, 10 MG PO DAILY, #30 TAB 01/06/19 Medications Current Medications IV Flush (NS 3 ml) 3 ml PER PROTOCOL IV ; Start 03/26/19 at 15:00 Ondansetron HCl (Zofran Inj) 4 mg Q6H PRN IV NAUSEA/VOMITING; Start 03/26/19 at 15:00 Acetaminophen (Tylenol Tab) 650 mg Q6H PRN PO .PAIN 1-3 OR TEMP; Start 03/26/19 at 15:00 Morphine Sulfate (morphine) 2 mg Q4H PRN IV .PAIN 7-10; Start 03/26/19 at 15:00 Docusate Sodium (Colace) 100 mg Q12H PRN PO .CONSTIPATION; Start 03/26/19 at 15:00 Magnesium Hydroxide (Milk Of Mag) 30 ml DAILY PRN PO .CONSTIPATION; Start 03/26/19 at 15:00 Pantoprazole (Protonix Tab) 40 mg DAILY@06 PO Last administered on 03/28/19at 06:24; Admin Dose 40 MG; Start 03/27/19 at 06:00 Ascorbic Acid (Vitamin C) 500 mg DAILY PO Last administered on 03/28/19at 09:47; Admin Dose 500 MG; Start 03/27/19 at 09:00 Benazepril HCl (Lotensin) 10 mg DAILY PO Last administered on 03/28/19at 09:48; Admin Dose 10 MG; Start 03/27/19 at 09:00 Finasteride (Proscar) 5 mg DAILY PO Last administered on 03/28/19at 09:47; Admin Dose 5 MG; Start 03/27/19 at 09:00 Mirtazapine (Remeron) 15 mg HS PO Last administered on 03/27/19at 20:28; Admin Dose 15 MG; Start 03/26/19 at 21:00 Multivitamins Therapeutic (Theragran) 1 tab DAILY PO Last administered on 03/28/19 09:47; Admin Dose 1 TAB; Start 03/27/19 at 09:00 Potassium Chloride (Klor-Con 20) 20 meq DAILY PO Last administered on 03/28/19 09:47; Admin Dose 20 MEQ; Start 03/27/19 at 09:00 Beta Carotene (Ocuvite) 1 tab DAILY PO Last administered on 03/28/19 09:47; Admin Dose 1 TAB; Start 03/27/19 at 09:00 Cefepime HCl 50 ml @ 100 mls/hr Q12 IVPB Last administered on 03/28/19 10:03; Admin Dose 100 MLS/HR; Start 03/27/19 at 01:00 Albuterol/ Ipratropium (Duoneb) 3 ml Q6HWA RESP THERAPY HHN Last administered on 03/28/19 14:05; Admin Dose 3 ML; Start 03/26/19 at 20:00 Methylprednisolone Sodium Succinate (Solu-Medrol) 40 mg Q12 IV Last administered on 03/28/19 09:47; Admin Dose 40 MG; Start 03/26/19 at 15:00 Heparin Sodium (Porcine) (Heparin (5000 Units/1ml)) 5,000 unit BID SC Last administered on 03/28/19 09:48; Admin Dose 5,000 UNIT; Start 03/26/19 at 21:00 Albuterol/ Ipratropium (Duoneb) 3 ml Q2 PRN HHN shorntess of breath Last administered on 03/27/19 19:56; Admin Dose 3 ML; Start 03/26/19 at 15:30 Guaifenesin (Mucinex) 600 mg BID PO Last administered on 03/28/19 09:47; Admin Dose 600 MG; Start 03/26/19 at 21:00 Guaifenesin/ Dextromethorphan (Robitussin Dm Liquid Cup) 5 ml Q4 PRN PO cough Last administered on 03/27/19 00:56; Admin Dose 5 ML; Start 03/26/19 at 15:30 Warfarin Sodium (Coumadin) 5 mg DAILY@17 PO Last administered on 03/27/19 17:35; Admin Dose 5 MG; Start 03/27/19 at 17:00 Furosemide (Lasix) 40 mg DAILY@0600 PO ; Start 03/29/19 at 06:00 Assessment/Plan Hospital Course (Demo Recall) 1. Bronchitis./ ? PNEUMONIA and possibly mild hemoptysis 2. Atrial fibrillation 3. 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 History of valvular heart disease status post aortic valve replacement 5. History of peripheral vascular disease status post aortic aneurysm repair 6. Hypertension 7. Dyslipidemia 8. Dementia Recommendations: Continue with p.o. Lasix ABX as per Dr Marlow adjust coumadin daily . goal INR 2-3 OFF OF betablocker due to wheezing pulm care as per IM Thank you for his referral. We will continue to follow along with you SIMEON RICO MD [facility] SIMEON RICO MD Mar 28, 2019 16:27
[2019-03-28] MEDS: WARFARIN 5 MG TAB PO SCH (16:43)
[2019-03-28 20:39] VITALS: BP 117/56; PULSE 66; RESP 16
[2019-03-28] MEDS: MIRTAZAPINE 15 MG TAB PO SCH (20:59)
[2019-03-29 03:18] VITALS: BP 141/65; PULSE 83; RESP 18
[2019-03-29] MEDS: PANTOPRAZOLE (EC) 40 MG TAB PO SCH (05:50)
[2019-03-29] MEDS ORDERED: FUROSEMIDE 40 MG TAB PO SCH (06:00)
[2019-03-29 07:15] VITALS: BP 137/64; PULSE 73; RESP 18
[2019-03-29] MEDS: ALBUTEROL/IPRATROPIUM (NEB) 3 ML AMP HHN SCH ×2 (09:00→13:54)
[2019-03-29] MEDS: BENAZEPRIL 10 MG TAB PO SCH (09:14)
[2019-03-29] MEDS: BETA CAROTENE/VIT C/E/MIN TAB PO SCH (09:15)
[2019-03-29] MEDS: MULTIVITAMINS THERAPEUTIC TAB PO SCH (09:15)
[2019-03-29] MEDS: FINASTERIDE 5 MG TAB PO SCH (09:15)
[2019-03-29] MEDS: METHYLPREDNISOLONE 40 MG INJ IV SCH (09:15)
[2019-03-29] MEDS: GUAIFENESIN LA 600 MG TABSR PO SCH (09:15)
[2019-03-29] MEDS: ASCORBIC ACID 500 MG TAB PO SCH (09:15)
[2019-03-29] MEDS: POTASSIUM CHLORIDE (SR) 20 MEQ TAB PO SCH (09:15)
[2019-03-29] MEDS: HEPARIN 5,000 UNIT/1 ML VIAL SC SCH (09:17)
[2019-03-29] MEDS ORDERED: CEFEPIME 1GM/50 ML (PMX) 50 ML ONE (09:23)
[2019-03-29] MEDS: CEFEPIME 1GM/50 ML (PMX) 50 ML IVPB SCH (09:23)
--- NOTE | 2019-03-29 10:44 | PDOCDIS ---
Discharge Instructions CONDITION [id number] Patient Condition: [id number] Stable ACTIVITY: [id number] Activity Restrictions: [id number] Slowly Increase Activity (with home health/physical therapy) FOLLOW UP/APPOINTMENTS Follow-up Plan home health per elmer english, see prescriptions RICHARDSON PETERSON MD Mar 29, 2019 10:44
[2019-03-29] MEDS ORDERED: ALBU8.5H8 INH (10:58)
[2019-03-29] MEDS ORDERED: GUAI5SYR2 PO (10:58)
[2019-03-29] MEDS ORDERED: COU5 PO (10:58)
[2019-03-29] MEDS ORDERED: LEVO500T48 PO (10:58)
--- NOTE | 2019-03-29 14:02 | CONS ---
Consult Date/Type/Reason Admit Date/Time Mar 26, 2019 at 14:34 Initial Consult Date 03/27/19 Type of Consultation: cv Requesting Provider: RICHARDSON MARLOW MD Date/Time of Note DATE: 03/29/19 TIME: 14:02 Subjective cv follow-up progress note Subjective: Case discussed with the staff. Patient with no chest pain or pressure no palpitation at this point denies shortness of breath PND orthopnea to me Objective: General: no acute distress HEENT: NC/AT. pupils are equal. round. NECK: NO JVD. no stridor. Chest: Status post sternotomy CV: RRR. systolic murmur; no gallop or rubs. PULM: no wheezing or rhonchi. GI: SOFT, NT, ND, no rebound or guarding Extremity: trace B/L LE edema. no clubbing. neuro: awake and alert, OX2. Psych: calm and pleasant rectal: deferred : normal Objective Vitals Vital Signs Date Temp Pulse Resp B/P (MAP) Pulse Ox O2 O2 Flow FiO2 Time Delivery Rate 03/29/19 71 16 96 21 13:54 03/29/19 97.7 137/64 Room Air 07:15 (88) 03/26/19 2.0 17:30 Intake and Output 03/28/19 03/28/19 03/29/19 1515:00 23:00 07:00 IntakeIntake Total 410 ml 790 ml OutputOutput Total 700 ml 730 ml 400 ml BalanceBalance -290 ml 60 ml -400 ml Results/Medications Result Diagram: 03/28/19 0603/28/19 0605 Results 24 hrs Laboratory Tests Test 03/29/19 05:09 Prothrombin Time 20.4 #H Prothrombin Time Ratio 1.6 INR International Normalized Ratio 1.74 Activated Partial Thromboplast Time 29.2 Home Meds Active Scripts Guaifenesin-Dextromethorphan* (Robitussin* DM) 100MG/10MG/5ML Syrup, 5 ML PO Q4H PRN for COUGH for 10 Days, ML Prov:RICHARDSON MARLOW MD 03/29/19 Albuterol Sulfate* (Proair HFA*) 8.5 Gm Hfa.aer.ad, 2 PUFF INH Q4 for shortness of breath, #1 INHALER Prov:RICHARDSON MARLOW MD 03/29/19 Levofloxacin* (Levaquin*) 500 Mg Tablet, 500 MG PO DAILY, #7 TAB Prov:RICHARDSON MARLOW MD 03/29/19 Warfarin Sod (Coumadin) 5 Mg Tab, 3 MG PO DAILY@17 for 20 Days, TAB check INR this week with home health, call MD with results Prov:RICHARDSON MARLOW MD 03/29/19 Reported Medications Acetaminophen* (Acetaminophen*) 325 Mg Tablet, 650 MG PO Q6H PRN for MILD PAIN LEVEL 1-3, #30 TAB 01/06/19 Calcium Carbonate/Vitamin D3 (OYSTERCAL-D 500 MG-400 UNIT TB) 1 Each Tablet, 1 EACH PO BID, TAB 01/06/19 Ascorbic Acid (Vitamin C) 500 Mg Tab, 500 MG PO DAILY, TAB 01/06/19 Simvastatin* (Zocor*) 10 Mg Tablet, 10 MG PO QHS, #30 TAB 01/06/19 Pantoprazole* (Pantoprazole*) 40 Mg Tablet.dr, 40 MG PO AC BREAKFAST, TAB 01/06/19 Vit A,C & E/Lutein/Minerals (Ocuvite) 1 Each Tablet, 1 TAB PO DAILY, TAB 01/06/19 Multivitamins* (Theragran*) 1 Tab Tab, 1 TAB PO DAILY, TAB 01/06/19 Mirtazapine* (Mirtazapine*) 15 Mg Tablet, 15 MG PO HS, TAB 01/06/19 Furosemide* (Furosemide*) 40 Mg Tablet, 40 MG PO DAILY, TAB 01/06/19 Finasteride* (Finasteride*) 5 Mg Tablet, 5 MG PO DAILY, TAB 01/06/19 Benazepril Hcl* (Benazepril Hcl*) 10 Mg Tablet, 10 MG PO DAILY, #30 TAB 01/06/19 Discontinued Reported Medications Warfarin Sodium* (Coumadin*) 2.5 Mg Tablet, 2.5 MG PO DAILY, TAB START 12/24/18 01/06/19 Metolazone* (Metolazone*) 5 Mg Tablet, 5 MG PO DAILY, TAB 01/06/19 Potassium Chloride* (Potassium Chloride*) 20 Meq Tablet.er, 20 MEQ PO DAILY, TAB .SA 01/06/19 Medications Current Medications IV Flush (NS 3 ml) 3 ml PER PROTOCOL IV ; Start 03/26/19 at 15:00 Ondansetron HCl (Zofran Inj) 4 mg Q6H PRN IV NAUSEA/VOMITING; Start 03/26/19 at 15:00 Acetaminophen (Tylenol Tab) 650 mg Q6H PRN PO .PAIN 1-3 OR TEMP; Start 03/26/19 at 15:00 Morphine Sulfate (morphine) 2 mg Q4H PRN IV .PAIN 7-10; Start 03/26/19 at 15:00 Docusate Sodium (Colace) 100 mg Q12H PRN PO .CONSTIPATION; Start 03/26/19 at 15:00 Magnesium Hydroxide (Milk Of Mag) 30 ml DAILY PRN PO .CONSTIPATION; Start 03/26/19 at 15:00 Pantoprazole (Protonix Tab) 40 mg DAILY@06 PO Last administered on 03/29/19 05:50; Admin Dose 40 MG; Start 03/27/19 at 06:00 Ascorbic Acid (Vitamin C) 500 mg DAILY PO Last administered on 03/29/19 09:15; Admin Dose 500 MG; Start 03/27/19 at 09:00 Benazepril HCl (Lotensin) 10 mg DAILY PO Last administered on 03/29/19 09:14; Admin Dose 10 MG; Start 03/27/19 at 09:00 Finasteride (Proscar) 5 mg DAILY PO Last administered on 03/29/19 09:15; Admin Dose 5 MG; Start 03/27/19 at 09:00 Mirtazapine (Remeron) 15 mg HS PO Last administered on 03/28/19 20:59; Admin Dose 15 MG; Start 03/26/19 at 21:00 Multivitamins Therapeutic (Theragran) 1 tab DAILY PO Last administered on 03/29/19 09:15; Admin Dose 1 TAB; Start 03/27/19 at 09:00 Potassium Chloride (Klor-Con 20) 20 meq DAILY PO Last administered on 03/29/19 09:15; Admin Dose 20 MEQ; Start 03/27/19 at 09:00 Beta Carotene (Ocuvite) 1 tab DAILY PO Last administered on 03/29/19 09:15; Admin Dose 1 TAB; Start 03/27/19 at 09:00 Cefepime HCl 50 ml @ 100 mls/hr Q12 IVPB Last administered on 03/29/19 09:23; Admin Dose 100 MLS/HR; Start 03/27/19 at 01:00 Albuterol/ Ipratropium (Duoneb) 3 ml Q6HWA RESP THERAPY HHN Last administered on 03/29/19 13:54; Admin Dose 3 ML; Start 03/26/19 at 20:00 Methylprednisolone Sodium Succinate (Solu-Medrol) 40 mg Q12 IV Last administered on 03/29/19 09:15; Admin Dose 40 MG; Start 03/26/19 at 15:00 Heparin Sodium (Porcine) (Heparin (5000 Units/1ml)) 5,000 unit BID SC Last administered on 03/29/19 09:17; Admin Dose 5,000 UNIT; Start 03/26/19 at 21:00 Albuterol/ Ipratropium (Duoneb) 3 ml Q2 PRN HHN shorntess of breath Last administered on 03/27/19 19:56; Admin Dose 3 ML; Start 03/26/19 at 15:30 Guaifenesin (Mucinex) 600 mg BID PO Last administered on 03/29/19 09:15; Admin Dose 600 MG; Start 03/26/19 at 21:00 Guaifenesin/ Dextromethorphan (Robitussin Dm Liquid Cup) 5 ml Q4 PRN PO cough Last administered on 03/27/19 00:56; Admin Dose 5 ML; Start 03/26/19 at 15:30 Warfarin Sodium (Coumadin) 5 mg DAILY@17 PO Last administered on 03/28/19 16:43; Admin Dose 5 MG; Start 03/27/19 at 17:00 Furosemide (Lasix) 40 mg DAILY@0600 PO Last administered on 03/29/19 05:52; Admin Dose 40 MG; Start 03/29/19 at 06:00 Assessment/Plan Hospital Course (Demo Recall) 1. Bronchitis./ ? PNEUMONIA and possibly mild hemoptysis 2. Atrial fibrillation 3. 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 History of valvular heart disease status post aortic valve replacement 5. History of peripheral vascular disease status post aortic aneurysm repair 6. Hypertension 7. Dyslipidemia 8. Dementia Recommendations: Continue with p.o. Lasix ABX as per Dr Marlow adjust coumadin daily . goal INR 2-3 OFF OF betablocker due to wheezing pulm care as per IM We will try to set up for outpatient follow-up to have his pacemaker checked regularly Thank you for his referral. We will continue to follow along with you SIMEON RICO MD [facility] SIMEON RICO MD Mar 29, 2019 14:02
[2019-03-29 14:11] VITALS: BP 120/58; PULSE 70; RESP 16
--- NOTE | 2019-03-29 18:17 | CONS ---
Consult Date/Type/Reason Admit Date/Time Mar 26, 2019 at 14:34 Initial Consult Date 03/27/19 Type of Consultation: Pulm Requesting Provider: RICHARDSON PETERSON MD Date/Time of Note DATE: 03/29/19 TIME: 18:14 Subjective Patient leaving the hospital at time of my visit. Discharged by PMD. Denies hemoptysis or dyspnea. Objective Vitals Vital Signs Date Temp Pulse Resp B/P (MAP) Pulse Ox O2 O2 Flow FiO2 Time Delivery Rate 03/29/19 97.3 70 16 120/58 94 High Flow 14:11 (78) 03/29/19 21 13:54 03/26/19 2.0 17:30 Intake and Output 03/28/19 03/28/19 03/29/19 1515:00 23:00 07:00 IntakeIntake Total 410 ml 790 ml OutputOutput Total 700 ml 730 ml 400 ml BalanceBalance -290 ml 60 ml -400 ml Exam HEENT: Neck supple; no JVD; no LAD CVS: Irreg irreg, S1 and S2 CHEST: Clear ABD: Soft, NT, + BS EXT: No c/c/e Results/Medications Result Diagram: 03/28/19 0603/28/19 06 Results 24 hrs Laboratory Tests Test 03/29/19 05:09 Prothrombin Time 20.4 #H Prothrombin Time Ratio 1.6 INR International Normalized Ratio 1.74 Activated Partial Thromboplast Time 29.2 Home Meds Active Scripts Guaifenesin-Dextromethorphan* (Robitussin* DM) 100MG/10MG/5ML Syrup, 5 ML PO Q4H PRN for COUGH for 10 Days, ML Prov:RICHARDSON PETERSON MD 03/29/19 Albuterol Sulfate* (Proair HFA*) 8.5 Gm Hfa.aer.ad, 2 PUFF INH Q4 for shortness of breath, #1 INHALER Prov:RICHARDSON PETERSON MD 03/29/19 Levofloxacin* (Levaquin*) 500 Mg Tablet, 500 MG PO DAILY, #7 TAB Prov:RICHARDSON PETERSON MD 03/29/19 Warfarin Sod (Coumadin) 5 Mg Tab, 3 MG PO DAILY@17 for 20 Days, TAB check INR this week with home health, call MD with results Prov:RICHARDSON PETERSON MD 03/29/19 Reported Medications Acetaminophen* (Acetaminophen*) 325 Mg Tablet, 650 MG PO Q6H PRN for MILD PAIN LEVEL 1-3, #30 TAB 01/06/19 Calcium Carbonate/Vitamin D3 (OYSTERCAL-D 500 MG-400 UNIT TB) 1 Each Tablet, 1 EACH PO BID, TAB 01/06/19 Ascorbic Acid (Vitamin C) 500 Mg Tab, 500 MG PO DAILY, TAB 01/06/19 Simvastatin* (Zocor*) 10 Mg Tablet, 10 MG PO QHS, #30 TAB 01/06/19 Pantoprazole* (Pantoprazole*) 40 Mg Tablet.dr, 40 MG PO AC BREAKFAST, TAB 01/06/19 Vit A,C & E/Lutein/Minerals (Ocuvite) 1 Each Tablet, 1 TAB PO DAILY, TAB 01/06/19 Multivitamins* (Theragran*) 1 Tab Tab, 1 TAB PO DAILY, TAB 01/06/19 Mirtazapine* (Mirtazapine*) 15 Mg Tablet, 15 MG PO HS, TAB 01/06/19 Furosemide* (Furosemide*) 40 Mg Tablet, 40 MG PO DAILY, TAB 01/06/19 Finasteride* (Finasteride*) 5 Mg Tablet, 5 MG PO DAILY, TAB 01/06/19 Benazepril Hcl* (Benazepril Hcl*) 10 Mg Tablet, 10 MG PO DAILY, #30 TAB 01/06/19 Discontinued Reported Medications Warfarin Sodium* (Coumadin*) 2.5 Mg Tablet, 2.5 MG PO DAILY, TAB START 12/24/18 01/06/19 Metolazone* (Metolazone*) 5 Mg Tablet, 5 MG PO DAILY, TAB 01/06/19 Potassium Chloride* (Potassium Chloride*) 20 Meq Tablet.er, 20 MEQ PO DAILY, TAB.SA 01/06/19 Assessment/Plan Assessment/Plan (Daily) IMP: 1. Hemoptysis--likely 2/2 tracheobronchitis in a patient on anticoagulation. CT chest reviewed in detail. There is no obvious endobronchial disease noted. 2. Atrial Fibrillation 3. Leukocytosis 4. Mild ADHR RECS: 1. Taper CS--->off 2. Diuresis with lasix PO 3. Patient to return to hospital if experiences further hemoptysis 4. Close outpatient follow-up recommended within 1 week YVROSE SNOW MD Mar 29, 2019 18:17
--- NOTE | 2019-03-29 23:16 | DS ---
DATE OF ADMISSION: 03/26/2019 DATE OF DISCHARGE: 03/29/2019 REASON FOR ADMISSION: Acute bronchitis, peripheral edema, shortness of breath and CHF exacerbation. HOSPITAL COURSE: The patient is an 88-year-old male with history of extensive cardiac hist ory including CHF, hypertension, atrial fibrillation, on Coumadin, valve surgery, CABG, 2-vessel dise ase and abdominal aortic aneurysm, who currently resides at assisted living facility at [facility]. The patient is known to me from previous hospitalization back in December when he presented with le ft shoulder pain and abnormal EKG. He was treated conservatively and also seen by the associate media planner. Now, he presents to the hospital with increased chest congestion and lower extremity edema. He was started on Augmentin, but overall, he was not able to even take the medication for more than a day an d overall was not doing well. He presented to the ER with respiratory distress. He was found to hav e a temperature of 99.8 and heavily wheezing and tachypneic. The patient was started on breathing tr eatment around the clock, IV steroids and antibiotics broad spectrum, with cefepime and vancomycin. Overall, the patient improved rapidly, but the patient also had mild tinge blood sputum so I consulte d also the inventory control specialist. The patient underwent a CAT scan of the chest, which showed mild peribronc hial thickening in the bilateral lower lobe, dual chamber cardiac pacemaker with battery in the left chest wall, left atrial appendage closure device apparent, prosthetic aortic valve, sternal wires and surgical clip with atherosclerosis and cholelithiasis. Dr. Cortes mentioned a bronchoscopy, but ov erall because of his age, etc., it was decided to treat him conservatively. Hopefully, that he just has bronchitis, but overall, the patient through monitor, this patient is doing much better. The pat ient also was diuresed with IV Lasix. The patient was seen by the associate media planner. The patient respond ed well as his edema resolved. Initially, also he had some erythema of the legs, suggestive of mild lower extremity cellulitis. White count went up because of being on IV steroids. Overall, the patie nt has improved significantly and his lungs are now clear. He still has a mild cough. The patient c an be discharged with home health. Again, we would like him to see a physical therapist prior to dis charge. If he is cleared, the patient can go home with home health and ongoing treatment. Case disc ussed extensively with the daughter on a regular basis. DISCHARGE MEDICATIONS: 1. Levaquin 500 mg daily for 7 days. 2. Robitussin-DM 5 mL q.4 hours p.r.n. for cough. 3. Medrol Dosepak 6-days taper. 4. Stop the Augmentin. 5. Protonix 40 mg daily. 6. Multivitamin daily. 7. Simvastatin 10 mg at bedtime. 8. Vitamin C 500 mg daily. 9. Benazepril 10 mg daily. 10. Lasix 40 mg daily. 11. Mirtazapine 15 mg at bedtime. 12. Finasteride 5 mg daily. 13. KCl 8 mEq b.i.d. 14. ProAir HFA 2 puffs q.4 hours p.r.n. for shortness of breath. 15. Coumadin ____ mg daily. Check INR weekly. Home health and physical therapy due to weakness and to follow up INR levels. Goal INR between 2 and 3. Again, INR went up as we increased his Coumadin to 5 mg. At home, he takes basically 2.5 alternating with 3, but when he came in, his INR was subth erapeutic, so I think ____ mg will be his dose but again, patient to be monitored as an outpatient. FINAL DIAGNOSES: 1. Acute respiratory failure. 2. Acute bronchitis. 3. Rule out pneumonia. 4. Mild hemoptysis. 5. Congestive heart failure, more of a diastolic dysfunction. 6. Peripheral edema. 7. Generalized weakness. 8. Neck pain and left shoulder pain, likely due to tendinitis and arthritis, now better. 9. Hypertension. 10. Benign prostatic hypertrophy. 11. History of atrial fibrillation. 12. History of valvular heart surgery. 13. History of abdominal aortic aneurysm status post stenting. 14. Pacemaker placement. 15. Status post carotid endarterectomy. The patient also could be on aspirin 81 mg daily as he was taking it for his ASCVD. 16. Generalized weakness. DISPOSITION: The patient to be discharged in fair condition. Overall, definitely doing much better. DIET: A 2-gram sodium. ACTIVITY: As tolerated with physical therapy. Fall precaution is advised. Again, patient discharge d if cleared by physical therapy as we are awaiting them to see the patient. Case discussed prior to discharge with the daughter. Dictated By: RICHARDSON FATIMA/DEVEN Conf#: [id number] DID#: [id number]
--- NOTE | 2019-03-30 08:19 | PN ---
DATE: 03/27/2019 SUBJECTIVE: The patient seen. The patient is doing much better, coughing less and less congested. Definitely much improved since yesterday. Appreciate cardiology and pulmonary input and recommendati ons. PHYSICAL EXAMINATION: VITAL SIGNS: Temperature 98, pulse 70, respirations 18, blood pressure 140/66, saturation 93% to 95% on room air. GENERAL: The patient is in no acute distress. HEENT: Normocephalic, atraumatic, pale. CARDIOVASCULAR: S1, S2. LUNGS: Mild rhonchi, much improved. ABDOMEN: Soft, nontender. EXTREMITIES: Very mild trace edema lower extremities, basically almost resolved. The patient is doi ng much better. LABORATORY DATA: White count 7.1, hemoglobin 13.1, hematocrit 38, platelet count of 170, neutrophils 84%, 12%. Chemistry: Sodium 136, potassium slightly low at 3.4, chloride 96, bicarbonate 31, BUN 22, creatinine 0.75, glucose 154. Hemoglobin A1c 5.3. Lactic acid was 1.0, AST 58, ALT 33, tot al protein 5.9, albumin 3.3. Cholesterol 122, LDL 70, HDL 43, TSH 0.79 and procalcitonin 0.08. INR is 1.26, subtherapeutic. The patient underwent a CT scan of the chest which shows mild peribronchial thickening in the bilateral lower lobes, dual chamber cardiac pacemaker with battery in the left rod st wall, left atrial appendage closure device is apparent, prosthetic aortic valve, sternal wires and surgical clips cholelithiasis. C-spine x-ray showed study limited secondary to patient body h abitus, C7 vertebral bodies poorly demonstrated on the lateral view, view, degenerative cervica l spine changes are noted. No acute abnormalities demonstrated. Shoulder x-ray of the left shows mi ld degenerative changes of the left shoulder, punctate calcification of the distal rotator cuff consi stent with calcific tendinitis, no significant interval change from the previous study. MEDICATIONS: All reviewed, include the followin. Vancomycin dose per pharmacy. 2. Vitamin C 500 mg daily. 3. Lotensin 10 mg daily. 4. daily. 5. Multivitamin daily. 6. KCl 20 units daily. 7. Ocuvite 1 tab daily. 8. Potassium daily. 9. Cefepime 1 gram q.12. 10. Remeron 50 mg at bedtime. 11. Heparin 5000 b.i.d. 12. Mucinex 600 b.i.d. 13. Coumadin 3 mg daily at 5:00 p.m. 14. DuoNeb q.12h. 15. Robitussin p.r.n. 16. Zofran p.r.n. 17. Lasix 20 IV q.12h. 18. Tylenol p.r.n. 19. Morphine p.r.n. 20. Colace p.r.n. 21. Milk of magnesia p.r.n. 22. Vancomycin as directed. 23. Solu-Medrol 40 IV q.12h. ASSESSMENT AND PLAN: This is an 88-year-old male with history of extensive cardiac history , mild vascular dementia, atrial fibrillation on Coumadin, BPH, osteoarthritis who presented with irish rtness of breath, congestion, acute bronchitis, rule out pneumonia. Also, lower extremity edema. 1. Respiratory, much better as patient is being treated for acute bronchitis and pneumonitis. The p atient has been on antibiotics, steroids, breathing treatment and O2 support, clinically much improve d. I appreciate pulmonary recommendations. CAT scan did not show any evidence of lung mass, likely mild hemoptysis is due to his bronchitis and ongoing cough, as he also takes Coumadin. 2. Cardiovascular: The patient with history of atrial fibrillation and valve surgery. Resume Couma din. Will increase dose to 5 mg today. Follow up INR levels. 3. Status post IV diuretic therapy; may change back to oral Lasix. 4. Continue Protonix for gastrointestinal prophylaxis. 5. Left shoulder pain and neck pain much improved today. The patient has been on IV Solu-Medrol. 6. Benign prostatic hypertrophy. Continue meds. 7. Physical therapy will be requested. 8. Decreased oral intake. Add Ensure. We will follow. Case discussed with daughter at bedside. Dictated By: RICHARDSON FATIMA/DEVEN Conf#: [id number] DID#: [id number]
== END 2019-03-29 16:20 | disposition home health service (06) | DRG 291 ==
LOC: E/R 13:47 → PP2 14:34
PROVIDERS: ADMIT Internal Medicine; ATTEND Internal Medicine
DX: I11.0 Hypertensive heart disease with heart failure (principal); J18.9 Pneumonia, unspecified organism; J96.00 Acute respiratory failure, unspecified whether with hypoxia or hypercapnia; J20.9 Acute bronchitis, unspecified; I50.33 Acute on chronic diastolic (congestive) heart failure; E78.5 Hyperlipidemia, unspecified; I25.10 Atherosclerotic heart disease of native coronary artery without angina pectoris; I48.91 Unspecified atrial fibrillation; I73.9 Peripheral vascular disease, unspecified; N40.0 Benign prostatic hyperplasia without lower urinary tract symptoms; M75.92 Shoulder lesion, unspecified, left shoulder; M54.2 Cervicalgia; M19.012 Primary osteoarthritis, left shoulder; F01.50 Vascular dementia, unspecified severity, without behavioral disturbance, psychotic disturbance, mood disturbance, and anxiety; Z87.891 Personal history of nicotine dependence; Z95.2 Presence of prosthetic heart valve; Z95.1 Presence of aortocoronary bypass graft; Z95.0 Presence of cardiac pacemaker; Z79.01 Long term (current) use of anticoagulants
CPT/HCPCS: 36415; 71045; 71250; 72040; 73030; 80048; 80053; 80061; 83036; 83605; 83735; 83880; 84100; 84145; 84439; 84443; 84484; 85025; 85610; 85730; 93970; 94640; 94664; 97162; J0456; J0692; J1644; J1940; J2920; J3370; J7050